=== PATIENT | female | born 1945 | race Caucasian/White ===

== ENCOUNTER 2017-06-08 06:29 | Inpatient (IN) | payer OTHER ==
[2017-05-13 11:48] VITALS: Ht 162.6 cm; Wt 78.6 kg
--- NOTE | 2017-05-13 12:27 | PAT Medication Instructions ---
Service Date May 13, 2017. Current Home Medication List Aspirin (Aspirin Ec), 81 MG PO QAM Calcium/Vitamin D (Os-Priyank 500 Plus D), 1,000 MG PO QAM Cholecalciferol (Vitamin D3), 1 CAP PO HS Citalopram Hydrobromide (Celexa), 20 MG PO QAM Fluticasone Prop/Salmeterol (Advair Diskus 250/50 60 Dose), 1 PUFF INH BID Furosemide (Lasix), 40 MG PO QAM Ibuprofen (Motrin), 600 MG PO TID PRN for PRN Losartan Potassium (Cozaar), 50 MG PO QAM Metoprolol Tartrate (Lopressor), 25 MG PO QPM Metoprolol Tartrate (Lopressor) (Lopressor), 12.5 MG PO QAM Multivitamin (Multivitamin), 1 TAB PO QAM Mupirocin 2% (Bactroban 2%), 1 APPLN EXT UD PRN for PRN Nitroglycerin (Nitrostat), 0.4 MG UT PRN Omeprazole (Prilosec), 40 MG PO QAM Rosuvastatin Calcium (Crestor), 5 MG PO HS Medication Instructions For Your Scheduled Surgery -Continue as directed: Nitroglycerin (Nitrostat), 0.4 MG UT PRN - Check with your surgeon for instructions for: Ibuprofen (Motrin), 600 MG PO TID PRN for PRN - Hold the following medications 24 hours prior to surgery: Mupirocin 2% (Bactroban 2%), 1 APPLN EXT UD PRN for PRN - Hold the following medications the morning of surgery: Multivitamin (Multivitamin), 1 TAB PO QAM Losartan Potassium (Cozaar), 50 MG PO QAM Furosemide (Lasix), 40 MG PO QAM Calcium/Vitamin D (Os-Priyank 500 Plus D), 1,000 MG PO QAM - Take the following medications the morning of surgery with a sip of water: Aspirin (Aspirin Ec), 81 MG PO QAM Omeprazole (Prilosec), 40 MG PO QAM Metoprolol Tartrate (Lopressor) (Lopressor), 12.5 MG PO QAM Fluticasone Prop/Salmeterol (Advair Diskus 250/50 60 Dose), 1 PUFF INH BID Citalopram Hydrobromide (Celexa), 20 MG PO QAM - Take the following medications as scheduled the night before surgery: Rosuvastatin Calcium (Crestor), 5 MG PO HS Metoprolol Tartrate (Lopressor), 25 MG PO QPM Fluticasone Prop/Salmeterol (Advair Diskus 250/50 60 Dose), 1 PUFF INH BID Cholecalciferol (Vitamin D3), 1 CAP PO HS If you have any questions please call us at [phone] or [phone] or [phone]
[2017-05-13 13:36] LABS: BASO % 0.3 %; BASO ABS # 0.03 K/uL (0-0.2); COMPLETE YES; EOS % 3.5 %; HEMATOCRIT 40.4 % (37-47); IG% 0.1 %; LYMPH % 35.5 %; LYMPH ABS # 3.31 K/uL (1.2-3.4); MEAN CORPUSCULAR HEMOGLOBIN 28.9 pg (25-34); MEAN CORPUSCULAR HGB CONC 32.4 g/dl (32-36); MEAN PLATELET VOLUME 10.8 fL (7.4-10.4); MONO % 7.8 %; NEUT % 52.8 %; PLATELET COUNT 303 K/uL (130-400); RED BLOOD COUNT 4.54 M/uL (4.2-5.4); WHITE BLOOD COUNT 9.33 K/uL (4.8-10.8)
[2017-05-13 13:50] LABS: PARTIAL THROMBOPLASTIN RATIO 1.1; PROTHROMBIN TIME (PATIENT) 10.8 SECONDS (9.0-12.0)
[2017-05-13 14:01] LABS: BUN/CREATININE RATIO 30.1 (10-20); CALCIUM 9.6 mg/dl (8.5-10.1); CREATININE 0.93 mg/dl (0.60-1.20); POTASSIUM 4.2 mmol/L (3.5-5.1)
--- NOTE | 2017-05-13 14:01 | DIAGNOSTIC IMAGING REPORT ---
TWO VIEW CHEST CLINICAL HISTORY: Preoperative examination. FINDINGS: PA and lateral chest radiographs are obtained. No prior studies are available for comparison at the time of dictation. The patient is status post midline sternotomy. The heart is mildly enlarged and there is atherosclerotic calcification of the thoracic aorta. The pulmonary vasculature is noncongested. The lungs and pleural spaces are clear. Apical scarring is observed. There is no pneumothorax. The skeletal structures are osteopenic. The bony thorax appears intact. S-shaped thoracal lumbar scoliosis is observed. IMPRESSION: Mild cardiac enlargement with no active disease in the chest. Electronically signed by: Mohsen Barahona M.D. 05/13/2017 2:00 PM Dictated Date/Time: 05/13/2017 1:59 PM
[~2017-06-08] VITALS: Ht 162.6 cm; Wt 78.6 kg
[2017-06-08] VITALS (9 sets, daily range): BP systolic 104–151; BP diastolic 64–78; PULSE 67–81; TEMP 36.4–37; O2SAT 91–96
[~2017-06-08 06:29] MED LIST: ADVIN25/60 INH; ASPI81TA28 PO; BCTCR/30 EXT; CALC500C70 PO; CEFAZOLIN 1000MG IV PUSH 5 ML IV SCH; CHOL2000 PO; CITA20TA9 PO; CRS/10 PO; FRS/40 PO; IBUP600T44 PO; LACTATED RINGER'S 1000ML 1,000 ML IV SCH; LOSA50TA6 PO; LPR25 PO; METO25TA56 PO; MULT-506 PO; NTRGSL/4 UT; PRLSR20 PO
[2017-06-08] MEDS ORDERED: PHENYLEPHRINE 100MCG/ML 5ML SYR IV PRN (08:00)
[2017-06-08] MEDS ORDERED: ATROPINE SULFATE 0.1 MG/ML 5ML SYR IV PRN (08:00)
[2017-06-08] MEDS ORDERED: HYDROmorphone INJ 1 MG/ML SYR IV PRN (08:00)
[2017-06-08] MEDS ORDERED: ACETAMINOPHEN 1000 MG/100 ML IV IV ONE (08:00)
[2017-06-08] MEDS ORDERED: FENTANYL CITRATE INJ 50 MCG/1 ML 2 ML VIAL IV PRN (08:00)
[2017-06-08] MEDS ORDERED: ONDANSETRON INJ 2 MG/ML 2 ML VIAL IV PRN ×2 (08:00→11:45)
[2017-06-08] MEDS ORDERED: EpHEDrine SULFATE INJ 50 MG/ML AMP IV PRN (08:00)
[2017-06-08] MEDS ORDERED: FENTANYL CITRATE INJ 50 MCG/1 ML 2 ML VIAL ONE ×4 (08:13→11:20)
[2017-06-08] MEDS ORDERED: MIDAZOLAM HCL 1 MG/ML 2ML VIAL ONE (08:13)
--- NOTE | 2017-06-08 08:40 | History & Physical Bridge Note ---
H&P Re-Evaluation Bridge Note: I have examined the patient, reviewed the History & Physical and in the interval since the performance of the History & Physical I have noted the following changes of clinical significance: No changes noted
--- NOTE | 2017-06-08 08:42 | History and Physical ---
History & Physical Date Jun 08, 2017. Chief Complaint Back and leg pain History of Present Illness The patient is a 72 year old female with complaints of back and leg pain Additional History Hepatic Disease: No Endocrine Disorder: No Kidney Disease: No Hypertension: Yes Heart Disease: No Bleeding Tendencies: No Infectious Diseases: No Allergies Coded Allergies: Oxycodone (Verified Allergy, Unknown, SEVERE NAUSEA AND VOMITNG, 06/08/17) Home Medications Scheduled Aspirin (Aspirin Ec), 81 MG PO QAM Calcium/Vitamin D (Os-Priyank 500 Plus D), 1,000 MG PO QAM Cholecalciferol (Vitamin D3), 1 CAP PO HS Citalopram Hydrobromide (Celexa), 20 MG PO QPM Fluticasone Prop/Salmeterol (Advair Diskus 250/50 60 Dose), 1 PUFF INH BID Furosemide (Lasix), 40 MG PO QAM Losartan Potassium (Cozaar), 50 MG PO QAM Metoprolol Tartrate (Lopressor), 25 MG PO QPM Metoprolol Tartrate (Lopressor) (Lopressor), 12.5 MG PO QAM Multivitamin (Multivitamin), 1 TAB PO QAM Nitroglycerin (Nitrostat), 0.4 MG UT PRN Omeprazole (Prilosec), 40 MG PO QAM Rosuvastatin Calcium (Crestor), 5 MG PO HS Scheduled PRN Ibuprofen (Motrin), 600 MG PO TID PRN for PRN Mupirocin 2% (Bactroban 2%), 1 APPLN EXT UD PRN for PRN Physical Examination Skin: warm/dry, no rash Eyes: normal inspection, EOMI, sclerae normal ENT: normal ENT inspection, pharynx normal Head: normocephalic, atraumatic Neck: supple, no adenopathy, trachea midline Respiratory/Chest: lungs clear, normal breath sounds, no respiratory distress Cardiovascular: regular rate, rhythm, no edema, no murmur Abdomen / GI: normal bowel sounds, non tender Back: normal inspection Extremities: normal inspection, normal range of motion Neurologic/Psych: no motor/sensory deficits, alert, normal reflexes, oriented x 3 Diagnosis Lumbar spinal stenosis Plan of Treatment L3 to L5 decompression and fusion
[2017-06-08] MEDS ORDERED: BACITRACIN 50000 UNIT VIAL ONE (08:58)
[2017-06-08] MEDS ORDERED: BUPIVACAINE/EPINEPHRINE 0.5% MPF 1:200,000 30 ML VIAL ONE (08:58)
[2017-06-08] MEDS ORDERED: HYDROmorphone INJ 2 MG/ML SYR/VIAL ONE ×2 (09:44→11:35)
[2017-06-08] MEDS ORDERED: ONDANSETRON INJ 2 MG/ML 2 ML VIAL ONE ×2 (10:22→12:50)
[2017-06-08] MEDS ORDERED: LIDOCAINE HCL 2% 2 ML VIAL (20MG/ML) ONE (10:22)
[2017-06-08] MEDS ORDERED: ROCURONIUM BROMIDE 10 MG/ML 5 ML VIAL IV ONE (10:22)
[2017-06-08] MEDS ORDERED: DEXAMETHASONE SOD INJ 4 MG/ML VIAL ONE (10:22)
[2017-06-08] MEDS ORDERED: PROPOFOL IV EMULSION 10 MG/ML 20 ML VIAL IV ONE (10:22)
[2017-06-08] MEDS ORDERED: FLOSEAL HEMOSTATIC MATRIX 10ML TOP ONE (11:26)
[2017-06-08] MEDS ORDERED: METOCLOPRAMIDE HCL INJ 5 MG/ML 2 ML VIAL IV PRN (11:45)
[2017-06-08] MEDS ORDERED: NALOXONE HCL 0.4 MG/1 ML VIAL/CARP IV PRN ×2 (11:45)
[2017-06-08] MEDS ORDERED: HYDROmorphone HCL 0.5MG/ML 50 ML CASSETTE IV PRN (11:45)
[2017-06-08] MEDS ORDERED: MAGNESIUM HYDROXIDE SUSP 30 ML UDC PO PRN (11:45)
[2017-06-08] MEDS ORDERED: ACETAMINOPHEN IV 100 ML IV PRN (11:45)
[2017-06-08] MEDS ORDERED: FAMOTIDINE 20 MG TAB PO PRN (11:45)
[2017-06-08] MEDS ORDERED: ACETAMINOPHEN 500 MG TAB PO PRN (11:45)
[2017-06-08] MEDS ORDERED: NITROGLYCERIN 0.4 MG SL PER TAB CHARGE UT SCH (11:45)
[2017-06-08] MEDS ORDERED: hydrOXYzine HCL 25 MG TAB PO PRN (11:45)
[2017-06-08] MEDS ORDERED: DO NOT ADMINISTER FLU VACCINE PRN ×3 (11:45)
[2017-06-08] MEDS ORDERED: BISACODYL 10 MG SUPP PR PRN (11:45)
[2017-06-08] MEDS ORDERED: DO NOT ADMINISTER PNEUMOCOCCAL VACCINE PRN ×2 (11:45)
[2017-06-08] MEDS ORDERED: PROMETHAZINE HCL INJ 12.5 MG in SODIUM CHLORIDE 0.9% 50ML 50 ML IV PRN (11:45)
[2017-06-08] MEDS ORDERED: LORAZEPAM INJ 0.5 MG in SYRINGE 0.75 ML IV PRN (11:45)
[2017-06-08] MEDS ORDERED: LORAZEPAM 0.5 MG TAB PO PRN (11:45)
[2017-06-08] MEDS ORDERED: ALUMINUM/MAGNESIUM SUSP 30 ML UDC PO PRN (11:45)
[2017-06-08] MEDS ORDERED: SOD PHOSPHATE/SOD BIPHOSPHATE ENEMA 132 ML BTL PR PRN (11:45)
[2017-06-08] MEDS ORDERED: SODIUM CHLORIDE 0.9% 1000ML 1,000 ML IV SCH (11:45)
--- NOTE | 2017-06-08 11:52 | [facility] Operative Report ---
Operative Report Operative Date Jun 08, 2017. Pre-Operative Diagnosis Lumbar Spinal Stenosis Post-Operative Diagnosis Same Procedure(s) Performed #1 lumbar decompression medial facetectomies foraminotomies L3 4 L4 5 L5-S1. #2 posterior spinal fusion L4 5 L5-S1. #3 placement posterior segmental instrumentation L3 4 L4 5. #4 interbody fusion L4 5. #5 placement peek cage 11 x 22 mm at L4 5. #6 placement of locally harvested morcellized autograft in the posterior lateral gutters. #7 placement infuse collagen sponge by mask graft in the posterior lateral gutter and ostial amp in the interbody space. Surgeon Dr. Moe Walker Electrical Engineering Director Surgeon(s) None Estimated Blood Loss 400 cc Findings Severe spinal stenosis Specimens none per surgeon Description of Procedure Patient was met with preoperatively case discussed all questions addressed. After informed consent was obtained patient was taken operative suite underwent intubation placed in a prone position the Jc table on top Mika frame. All bony prominences well-padded eyes inspected to ensure there is no external pressure placed upon them. This point the lumbar spine was prepped and draped in the normal sterile fashion. Sharp dissection with the assistance of Bovie cautery was performed onto an exposing the lamina and transverse processes of L3 L4-L5 bilaterally. From a caudal cephalad fashion complete laminectomy of L4 and L3 was performed as well as partial laminectomy of L5 to address significant lateral recess disease and stenosis of the L5 nerve root on the right. After complete decompression pedicle screws are placed in L3 L4-L5 bilaterally with assistance of fluoroscopy the purposes vera placed. Through a transverse foraminal approach on the right a complete discectomy of L4 5 was performed and plate created to subcortical bleeding bone and a 11 x 22 mm peek cage filled with ostial amp bone graft tapped in position. The rods were then locked and final position bilaterally. Transverse processes of L3 L4-L5 and sacral alar burred to subcortical bleeding bone. Infuse collagen sponge mask graft locally harvested morcellized autograft was placed in the posterior lateral gutters. 15 round JOSE drain inserted. Incision closed with 1 Vicryl in the fascia 2-0 Vicryl subcutaneously for Monocryl for final skin closure Steri- Strips sterile dressings placed. Patient we can take PACU stable condition. I attest to the content of the Intraoperative Record and any orders documented therein. Any exceptions are noted below.
[2017-06-08] MEDS ORDERED: HYDROmorphone HCL 0.5MG/ML 50 ML CASSETTE ONE (12:00)
--- NOTE | 2017-06-08 12:33 | DIAGNOSTIC IMAGING REPORT ---
LUMBAR SPINE 2 OR 3 VIEW HISTORY: 72 years-old Female L3-5 DECOMPRESSION/FUSION/INTERBODY status post decompression with interbody fusion at L3-L5 COMPARISON: Chest radiographs 05/13/2017 TECHNIQUE: 2 spot fluoroscopic images of the lumbar spine were obtained utilizing 15.7 seconds fluoroscopy time FINDINGS: Posterior interbody vera and screw fusion hardware noted at the L3-L5 levels. Discectomy changes noted at L4-L5. Alignment appears satisfactory. The hardware appears intact. IMPRESSION: Spinal fusion with fluoroscopic assistance as above. Please see operative report for further details. The above report was generated using voice recognition software. It may contain grammatical, syntax or spelling errors. Electronically signed by: Christian San M.D. 06/08/2017 12:32 PM Dictated Date/Time: 06/08/2017 12:31 PM
[2017-06-08] MEDS ORDERED: NEOSTIGMINE METHYLSULFATE 1 MG/ML 10ML VIAL ONE (12:50)
[2017-06-08] MEDS ORDERED: GLYCOPYRROLATE INJ 0.2 MG/ML VIAL ONE (12:50)
[2017-06-08] MEDS ORDERED: KETOROLAC TROMETHAMINE 30 MG/ML VIAL ONE (12:50)
--- NOTE | 2017-06-08 12:58 | Anesthesiology Progress Note ---
Anesthesia Post Op Note Date & Time Jun 08, 2017 at 12:57 Vital Signs Pain Intensity: 0 Vital Signs Past 12 Hours Date Time Temp Pulse Resp B/P (MAP) Pulse Ox O2 Delivery O2 Flow Rate FiO2 06/08/17 12:45 36.5 69 16 152/56 96 Nasal Cannula 2 06/08/17 12:35 74 18 155/52 98 Oxymask 5 06/08/17 12:25 76 18 164/52 98 Oxymask 5 06/08/17 12:15 77 18 162/55 100 Oxymask 10 06/08/17 12:05 82 18 186/64 98 Oxymask 10 06/08/17 11:57 36.5 83 16 175/70 94 Oxymask 10 06/08/17 07:48 36.9 67 18 151/72 96 Room Air Notes Mental Status: alert / awake / arousable, participated in evaluation Pt Amnestic to Procedure: Yes Nausea / Vomiting: adequately controlled Pain: adequately controlled Airway Patency, RR, SpO2: stable & adequate BP & HR: stable & adequate Hydration State: stable & adequate Anesthetic Complications: no major complications apparent Doing well, no complaints.VSS
[2017-06-08] MEDS: SODIUM CHLORIDE 0.9% 1000ML 1,000 ML IV SCH ×2 (16:03→22:54)
[2017-06-08] MEDS ORDERED: NURSING VERBAL MED ORDER ONE (16:15)
[2017-06-08] MEDS: CEFAZOLIN IV 1,000 MG in SYRINGE 0 ML IV SCH (17:54)
[2017-06-08] MEDS: FLUTICASONE/SALMETEROL 250/50 (ADVAIR) 14 PUFF/1 INHALER INH SCH (21:03)
[2017-06-08] MEDS: METOPROLOL TARTRATE 25 MG TAB PO SCH (21:04)
[2017-06-08] MEDS: CITALOPRAM 20 MG TAB PO SCH (21:04)
[2017-06-08] MEDS: DOCUSATE SODIUM/SENNA 50/8.6MG TAB PO SCH (21:04)
[2017-06-08] MEDS: ROSUVASTATIN CALCIUM 10 MG TAB PO SCH (21:04)
[2017-06-09] VITALS (8 sets, daily range): BP systolic 114–177; BP diastolic 63–78; PULSE 67–77; TEMP 36.5–37; O2SAT 91–96
[2017-06-09] MEDS: CEFAZOLIN IV 1,000 MG in SYRINGE 0 ML IV SCH (02:24)
[2017-06-09] MEDS: SODIUM CHLORIDE 0.9% 1000ML 1,000 ML IV SCH (05:10)
[2017-06-09] MEDS ORDERED: NURSING VERBAL MED ORDER ONE (06:00)
[2017-06-09] MEDS ORDERED: DC PCA SCH (06:00)
[2017-06-09] MEDS ORDERED: HYDROmorphone INJ 0.5 MG/0.5 ML SYR IV PRN (06:00)
[2017-06-09 06:04] LABS: BASO % 0.1 %; BASO ABS # 0.01 K/uL (0-0.2); COMPLETE YES; IG% 0.3 %; LYMPH % 8.4 %; LYMPH ABS # 1.43 K/uL (1.2-3.4); MEAN CELL VOLUME 90.4 fL (80-100); MEAN CORPUSCULAR HEMOGLOBIN 28.6 pg (25-34); MEAN CORPUSCULAR HGB CONC 31.6 g/dl (32-36); MEAN PLATELET VOLUME 10.8 fL (7.4-10.4); NEUT % 84.2 %; PLATELET COUNT 272 K/uL (130-400); RED BLOOD COUNT 3.43 M/uL (4.2-5.4); WHITE BLOOD COUNT 16.94 K/uL (4.8-10.8)
[2017-06-09 06:32] LABS: BUN/CREATININE RATIO 20.6 (10-20); CALCIUM 8.1 mg/dl (8.5-10.1); CREATININE 1.15 mg/dl (0.60-1.20); POTASSIUM 4.6 mmol/L (3.5-5.1)
[2017-06-09] MEDS ORDERED: HYDR-5688 PO (08:39)
--- NOTE | 2017-06-09 08:40 | Discharge Instructions ---
Discharge Instructions Date of Service Jun 09, 2017. Admission Reason for Admission: Lumbar Spinal Stenosis Discharge Discharge Diagnosis / Problem: lumbar stenosis Discharge Goals Goal(s): Improve function Activity Recommendations Activity Limitations: per Instructions/Follow-up section . Instructions / Follow-Up Instructions / Follow-Up ACTIVITY RECOMMENDATIONS: SELF CARE INSTRUCTIONS AFTER THORACIC/LUMBAR FUSIONS 1. You may walk to your tolerance. It is good exercise for your legs and back. Expect some back and intermittent leg aches and pains. 2. You may perform "counter-top" level activities (make a sandwich, bryon with a project, etc.). 3. No bending or lifting of more than 10 pounds or back twisting of any nature (roll like a log when turning in bed). 4. You may ride in a car for 20-30 minutes at a time. No driving until after your first visit with your doctor. 5. Frequent changes of position and restricting sitting to 30 minutes at a time will help limit the amount of back spasms and stiffness you may experience. 6. You may discontinue the use of ambulatory aids (cane, crutches, etc.) once your strength and confidence allow. 7. You may piping blocker the shower and let water strike your incision when you arrive home at least once daily. Do not take a tub bath, sit in a hot tub or go into a swimming pool until after your first recheck in the office. SPECIAL CARE INSTRUCTIONS: VERY IMPORTANT TO READ AND REVIEW A. Your surgical incision has been closed with a cosmetic suture under the skin that will dissolve in about 6 weeks. In 14 days, you can use a pair of clean scissors and cut the suture that is left outside of the skin at the ends of your incision. 1. The small skin tapes can be removed 7 days after surgery if they have not fallen off by that point. 2. You may keep the wound open to air as much as possible to promote healing after post-op day number 5 unless told otherwise by your doctor. 3. If you think the wound looks like it is becoming infected (redness or worsening drainage) and/or you are experiencing fever, chill or worsening back pain and muscle spasms, contact the office so that we may evaluate you as soon as possible. B. Complications are uncommon, but please contact us if you have any signs or symptoms of: 1. wound infection (fever higher than 102.5 degrees F, redness, separation of wound, drainage, or increasing pain from the incision) 2. blood clots in legs (pain, swelling, redness and warmth in legs) 3. urinary tract infection (fever higher than 102.5 degrees F, burning upon urination or increased frequency of urination) 4. nerve problems (inability to walk on your toes or heels, numbness, loss of bowel or bladder control) 5. any other symptoms that concern you C. Please call the office at if you have any concerns or questions about your operation or recovery. D. No smoking! Smoking drastically decreases the chance of a solid fusion. E. Do not take any anti-inflammatory medications (Indocin, Advil, Motrin, Aspirin, Naprosyn, etc.) as these may inhibit the chance of a solid fusion. Tylenol is okay to take for pain. MANAGING PAIN AFTER SPINAL SURGERY 1. Narcotic medication is intended for short-term use and will be provided for surgical pain. Surgical pain usually lasts for a period of 4-6 weeks. Narcotic medication includes Percocet, Vicodin, Darvocet, Tylenol #3 or Lortab. 2. Longer-term pain is more appropriately treated with non-narcotic medication such as Tylenol ES. 3. Muscle spasm is not appropriately treated with narcotics. Muscle relaxers such as Soma, Flexeril or Skelaxin can be used along with Tylenol ES. 4. Remember that we all live with some "aches and pains". This is not unusual or uncommon after an injury or as we get older. a. Back pain is expected and may include muscle spasms for 4 to 6 weeks after surgery. The pain should gradually improve. If the pain worsens for no apparent reason, please contact the office. b. Intermittent leg pain may also be experienced and should not be concerned about unless it worsens for no apparent reason. If so, please contact the office. 5. We will provide appropriate medication within the normal guidelines of their prescribed use. We will also be very cautious and aware of potential abuse and extended duration of patients' medication needs. a. Pain medications are for your comfort and to assist with sleep and rest so that the tissue can heal. They are not provided in order to return to normal activity and should not be used through the day. To do so or worsening pain at night can result from ongoing tissue damage and development of tolerance to the prescribed medicine. 6. Please allow 2-3 days to process refills. Prescriptions will not be mailed but must be picked up at the office. FOLLOW UP VISIT: Keep your scheduled follow-up appointment. Any questions, please call the office at . Current Hospital Diet Patient's current hospital diet: Regular Diet Discharge Diet Recommended Diet: Regular Diet Procedures Procedures Performed: #1 lumbar decompression medial facetectomies foraminotomies L3 4 L4 5 L5-S1. #2 posterior spinal fusion L4 5 L5-S1. #3 placement posterior segmental instrumentation L3 4 L4 5. #4 interbody fusion L4 5. #5 placement peek cage 11 x 22 mm at L4 5. #6 placement of locally harvested morcellized autograft in the posterior lateral gutters. #7 placement infuse collagen sponge by mask graft in the posterior lateral gutter and ostial amp in the interbody space. Pending Studies Studies pending at discharge: no Medical Emergencies . Who to Call and When: Medical Emergencies: If at any time you feel your situation is an emergency, please call 911 immediately. . Non-Emergent Contact Non-Emergency issues call your: Primary Care Provider . "Provider Documentation" section prepared by Moe Walker. . VTE Core Measure Inpt VTE Proph given/why not?: Nba Colmenares, SCD's
--- NOTE | 2017-06-09 08:44 | Clinical Documentation Query ---
CLINICAL DOCUMENTATION QUERY Dr. OSMAN, In your clinical opinion is this patient being managed for: ( x ) Acute blood loss anemia ( ) Not Agree ( ) Other explanation of clinical findings (Please Explain) ( ) Unable to determine (Please Define) ( ) Need to Discuss The medical record reflects the following clinical findings, treatment, and risk factors. Clinical Indicators: Baseline Hgb 13.1, Hct 40.4, dropping to 9.8/31. EBL 400 cc Treatment: monitor CBC Risk Factors: surgery Please clarify and document your clinical opinion in the progress notes and discharge summary. Terms such as "probable", "suspected", "likely", "questionable", "possible", or "still to be ruled out" are acceptable. IF IN AGREEMENT, YOU MUST DOCUMENT ABOVE DIAGNOSTIC STATEMENT IN DAILY PROGRESS NOTES AND DISCHARGE SUMMARY. This document is not part of the patient's record. Thank You, Deborah Andrews RN [phone]
--- NOTE | 2017-06-09 09:09 | Progress Note ---
Progress Note Date of Service Jun 09, 2017. Progress Note Patient is status post lumbar decompression fusion. Back pain is controlled. Leg pain markedly improved. On exam vital signs are stable. She is in a chair at bedside. Strength is intact. Assessment status post lumbar decompression fusion replant this time we'll initiate physical therapy today advance her bowel regiment anticipate discharge home Wednesday.
[2017-06-09] MEDS: ASPIRIN 81 MG ECTAB PO SCH (09:16)
[2017-06-09] MEDS: FUROSEMIDE 40 MG TAB PO SCH (09:16)
[2017-06-09] MEDS: FLUTICASONE/SALMETEROL 250/50 (ADVAIR) 14 PUFF/1 INHALER INH SCH ×2 (09:16→20:02)
[2017-06-09] MEDS: PANTOprazole SOD 40 MG TAB PO SCH (09:16)
[2017-06-09] MEDS: LOSARTAN POTASSIUM 50 MG TAB PO SCH (09:17)
[2017-06-09] MEDS: METOPROLOL TARTRATE 25 MG TAB PO SCH ×2 (09:18→20:05)
[2017-06-09] MEDS: HYDROCODONE/ACETAMOPHEN 5/325MG TAB PO PRN ×3 (11:00→20:49)
--- NOTE | 2017-06-09 12:57 | Anesthesiology Progress Note ---
Anesthesia Post Op Note Date & Time Jun 09, 2017 at 12:56 Vital Signs Vital Signs Past 12 Hours Date Time Temp Pulse Resp B/P (MAP) Pulse Ox O2 Delivery O2 Flow Rate FiO2 06/09/17 12:00 36.8 74 18 177/78 (111) 96 Room Air 06/09/17 08:53 94 Room Air 06/09/17 08:33 36.5 72 20 144/70 (94) 94 Room Air 06/09/17 07:25 Room Air 06/09/17 03:31 37.0 73 14 119/67 (84) 91 Room Air Notes Mental Status: alert / awake / arousable, participated in evaluation Pt Amnestic to Procedure: Yes Nausea / Vomiting: adequately controlled Pain: adequately controlled Airway Patency, RR, SpO2: stable & adequate BP & HR: stable & adequate Hydration State: stable & adequate Anesthetic Complications: no major complications apparent
[2017-06-09] MEDS: DOCUSATE SODIUM/SENNA 50/8.6MG TAB PO SCH (20:02)
[2017-06-09] MEDS: CITALOPRAM 20 MG TAB PO SCH (20:03)
[2017-06-09] MEDS: ROSUVASTATIN CALCIUM 10 MG TAB PO SCH (20:03)
[2017-06-10] MEDS: POLYETHYLENE (MIRALAX) 17 GM PACK PO SCH ×4 (06:00→23:20)
[2017-06-10 07:34] VITALS: BP 145/73; PULSE 72; TEMP 36.8; O2SAT 93
--- NOTE | 2017-06-10 09:03 | Progress Note ---
Progress Note Date of Service Jun 10, 2017. Progress Note Back pain is controlled. Again leg symptoms improved. On exam vital signs are stable. She sitting in the chair at the bedside. His good strength testing. Assessment status post lumbar decompression fusion per plan this time we will maintain physical therapy today and plan for discharge home tomorrow.
[2017-06-10] MEDS: HYDROCODONE/ACETAMOPHEN 5/325MG TAB PO PRN ×2 (10:21→18:14)
[2017-06-10] MEDS: FUROSEMIDE 40 MG TAB PO SCH (10:21)
[2017-06-10] MEDS: ASPIRIN 81 MG ECTAB PO SCH (10:22)
[2017-06-10] MEDS: PANTOprazole SOD 40 MG TAB PO SCH (10:22)
[2017-06-10] MEDS: LOSARTAN POTASSIUM 50 MG TAB PO SCH (10:22)
[2017-06-10] MEDS: FLUTICASONE/SALMETEROL 250/50 (ADVAIR) 14 PUFF/1 INHALER INH SCH ×2 (10:22→20:18)
[2017-06-10] MEDS: METOPROLOL TARTRATE 25 MG TAB PO SCH ×2 (10:24→20:19)
[2017-06-10 14:57] VITALS: BP 105/62; PULSE 70; TEMP 36.8; O2SAT 94
[2017-06-10 20:15] VITALS: BP 144/75; PULSE 83
[2017-06-10] MEDS: ROSUVASTATIN CALCIUM 10 MG TAB PO SCH (20:18)
[2017-06-10] MEDS: CITALOPRAM 20 MG TAB PO SCH (20:18)
[2017-06-10] MEDS: DOCUSATE SODIUM/SENNA 50/8.6MG TAB PO SCH (20:19)
[2017-06-10 22:50] VITALS: BP 125/72; PULSE 78; TEMP 36.7; O2SAT 97
[2017-06-11] MEDS: POLYETHYLENE (MIRALAX) 17 GM PACK PO SCH (06:00)
[2017-06-11] MEDS: HYDROCODONE/ACETAMOPHEN 5/325MG TAB PO PRN ×2 (07:27→11:43)
[2017-06-11 07:52] VITALS: BP 124/64; PULSE 73; TEMP 36.8; O2SAT 94
[2017-06-11 08:23] VITALS: O2SAT 94
[2017-06-11] MEDS: FUROSEMIDE 40 MG TAB PO SCH (08:51)
[2017-06-11] MEDS: FLUTICASONE/SALMETEROL 250/50 (ADVAIR) 14 PUFF/1 INHALER INH SCH (08:51)
[2017-06-11] MEDS: PANTOprazole SOD 40 MG TAB PO SCH (08:52)
[2017-06-11] MEDS: LOSARTAN POTASSIUM 50 MG TAB PO SCH (08:52)
[2017-06-11] MEDS: METOPROLOL TARTRATE 25 MG TAB PO SCH (08:52)
[2017-06-11] MEDS: ASPIRIN 81 MG ECTAB PO SCH (08:52)
[2017-06-11] MEDS ORDERED: NURSING VERBAL MED ORDER ONE (09:30)
--- NOTE | 2017-06-11 10:00 | Discharge Summary ---
Orthopedic Discharge Summary Admission Date/Reason Jun 08, 2017 at 09:05 Lumbar Spinal Stenosis. Discharge Date/Disposition Jun 11, 2017 Home Diagnosis Principal Diagnosis: Lumbar spinal stenosis Admission Physical Exam As per Admitting History & Physical. Hospital Course Patient 1 lumbar decompression fusion tolerated as well as taken to the orthopedic floor postop we. Postoperative the she tolerated physical therapy well progressed appropriately. JOSE drain decreased properly subsequently discharge home postop day 3. Discharge orders and instructions found on the chart for further review. Discharge Instructions Please refer to the electronic Patient Visit Report (Discharge Instructions) for additional information.
[2017-06-11 11:10] VITALS: BP 124/64; PULSE 73; TEMP 36.8; O2SAT 94
== END 2017-06-11 12:04 | disposition home or self-care (01) | DRG 455 ==
LOC: C.ACU 06:29 → C.3E 09:05 → ENRESERV 12:33
PROVIDERS: ADMIT Orthopaedic Surgery Orthopaedic Surgery of the Spine; ATTEND Orthopaedic Surgery Orthopaedic Surgery of the Spine
PROC: 0SG3071 Fusion of Lumbosacral Joint with Autologous Tissue Substitute, Posterior Approach, Posterior Column, Open Approach (ICD-10-PCS; principal; 2017-06-08 08:45)
PROC: 0SG00AJ Fusion of Lumbar Vertebral Joint with Interbody Fusion Device, Posterior Approach, Anterior Column, Open Approach (ICD-10-PCS; principal; 2017-06-08 08:45)
PROC: 01NB0ZZ Release Lumbar Nerve, Open Approach (ICD-10-PCS; principal; 2017-06-08 08:45)
PROC: 0SG0071 Fusion of Lumbar Vertebral Joint with Autologous Tissue Substitute, Posterior Approach, Posterior Column, Open Approach (ICD-10-PCS; principal; 2017-06-08 08:45)
PROC: 0ST20ZZ Resection of Lumbar Vertebral Disc, Open Approach (ICD-10-PCS; principal; 2017-06-08 08:45)
DX: M48.061 Spinal stenosis, lumbar region without neurogenic claudication (principal); I10 Essential (primary) hypertension; Z79.82 Long term (current) use of aspirin

== ENCOUNTER 2017-06-17 01:53 | Observation (INO) | payer OTHER ==
[~2017-06-17] VITALS: Ht 160 cm; Wt 83.5 kg
[~2017-06-17 01:53] MED LIST changes: -CEFAZOLIN 1000MG IV PUSH 5 ML IV SCH; +HYDR-5688 PO; -IBUP600T44 PO; -LACTATED RINGER'S 1000ML 1,000 ML IV SCH
[2017-06-17] MEDS ORDERED: HYDROmorphone INJ 0.5 MG/0.5 ML SYR IV STA ×2 (02:22→12:29)
--- NOTE | 2017-06-17 02:29 | EMERGENCY ROOM VISIT NOTE ---
History Report prepared by Vicki: Bong Pierre Under the Supervision of: Dr. Lily Ahmadi D.O. First contact with patient: 01:54 Chief Complaint: BACK INJURY Stated Complaint: BACKPAIN History of Present Illness The patient is a 72 year old female who presents to the Emergency Room with complaints of constant, severe, right sided back pain beginning yesterday morning. The patient states had back surgery performed on the of this month and was discharged from the hospital on the . She reports she was discharged on oxycodone for pain control. The patient notes she was becoming delusional and was not able to recognize family members. She states she stopped taking oxycodone and started taking Tylenol 30 hours ago. The patient reports when she was discharged, she had bilateral pain in her thighs, but she thought she would be able to handle it. She notes she was in the bathroom yesterday morning when she heard a popping noise in her back. The patient states she continued her day in pain until she had another episode right before bed. She reports this episode caused the pain to intensify and shoot from her back into her thighs. The patient notes since surgery she has not been able to rest or walk well. She states she was still experiencing significant discomfort while on oxycodone. The patient reports she has been experiencing swelling in her lower extremities since the surgery. She notes she has been on Lasix before, and it helped with her swelling. She denies lower leg pain, chest pain, and shortness of breath. Source of History: patient Onset: yesterday morning Position: back (right) Symptom Intensity: severe Timing: constant Associated Symptoms: No chest pain, No SOB Note: Associated symptoms: thigh pain, swelling to her lower extremities Denies: lower leg pain Review of Systems See HPI for pertinent positives & negatives. A total of 10 systems reviewed and were otherwise negative. Past Medical & Surgical Medical Problems: (1) Lumbar stenosis with neurogenic claudication Family History Patient reports no known family medical history. Social History Smoking Status: Unknown if Ever Smoked Marital Status: Occupation Status: retired Current/Historical Medications Scheduled Aspirin (Aspirin Ec), 81 MG PO QAM Calcium/Vitamin D (Os-Priyank 500 Plus D), 1,000 MG PO QAM Cholecalciferol (Vitamin D3), 1 CAP PO HS Citalopram Hydrobromide (Celexa), 20 MG PO QPM Fluticasone Prop/Salmeterol (Advair Diskus 250/50 60 Dose), 1 PUFF INH BID Furosemide (Lasix), 40 MG PO QAM Losartan Potassium (Cozaar), 50 MG PO QAM Metoprolol Tartrate (Lopressor), 25 MG PO QPM Metoprolol Tartrate (Lopressor) (Lopressor), 12.5 MG PO QAM Multivitamin (Multivitamin), 1 TAB PO QAM Nitroglycerin (Nitrostat), 0.4 MG UT PRN Omeprazole (Prilosec), 40 MG PO QAM Rosuvastatin Calcium (Crestor), 5 MG PO HS Scheduled PRN Hydrocodone/Acetaminophen 5MG/325MG ([place] 5MG/325MG), 1-2 TAB PO Q4H PRN for Moderate - severe pain Mupirocin 2% (Bactroban 2%), 1 APPLN EXT UD PRN for PRN Allergies Coded Allergies: Oxycodone (Verified Allergy, Unknown, SEVERE NAUSEA AND VOMITNG, 06/17/17) Physical Exam Vital Signs Date Time Temp Pulse Resp B/P (MAP) Pulse Ox O2 Delivery O2 Flow Rate FiO2 06/17/17 05:57 95 20 145/69 94 Room Air 06/17/17 05:09 71 06/17/17 03:43 69 22 149/67 94 Room Air 06/17/17 02:02 73 06/17/17 01:57 36.9 74 20 178/74 93 Room Air Physical Exam HEENT: Head - normocephalic and atraumatic. Pupils are equal, round, and reactive to light. Extraocular eye muscles are intact and sclera are anicteric. Ears - bilaterally patent canals with noninjected tympanic membranes and no evidence of hemotympanum. Nose - moist nasal mucosa without discharge. Mouth - moist buccal mucosa. Oropharynx is nonerythematous and there is no tonsillar exudate or edema noted. Neck: Supple; no JVD, nuchal rigidity, cervical lymphadenopathy. Heart: Regular rate and rhythm. There is a normal S1 and S2 with no murmurs, clicks, or gallops appreciated. Lungs: Clear to auscultation bilaterally with no wheezes, rales, or rhonchi. Abdomen: Soft, completely nontender, nondistended, with good bowel sounds. There are no palpable pulsatile masses or hepatosplenomegaly. There is no guarding, rigidity, or rebound noted. BACK: Surgical incision appears well healing. Moderate edema noted to the right paraspinous area of the lumbar spine. Multiple patches of psoriasis surround the incision. Reproducible pain in the right piriformis muscle Extremities: No evidence of cyanosis, clubbing, or edema. There are easily palpable peripheral pulses. Neuro:The patient is awake and alert, oriented to day, time, and place. Muscle strength is 5/5 in all 4 extremities. 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 Medical Decision & Procedures ER Provider Diagnostic Interpretation: CT results as stated below per my review and radiologist interpretation: CT L SPINE: No prior studies available for comparison. L3-L5 transpedicular screws and posterior fusion rods appear well seated. There is fluid and paraspinal soft tissue edema/stranding at the surgical site, suboptimally evaluated due to steak artifact from hardware, expected postoperatively. However, cannot exclude infection based on this study. Correlate clinically. No acute fractures. Chronic multilevel degenerative changes with scoliosis. Radiologist: Arsen Andrade MD Study ready at 0258 and initial results transmitted at 1344. Laboratory Results 06/17/17 02:25 Red Blood Count 3.54, Mean Corpuscular Volume 87.9, Mean Corpuscular Hemoglobin 28.8, Mean Corpuscular Hemoglobin Concent 32.8, Mean Platelet Volume 9.5, Neutrophils (%) (Auto) 76.6, Lymphocytes (%) (Auto) 14.7, Monocytes (%) (Auto) 7.7, Eosinophils (%) (Auto) 0.6, Basophils (%) (Auto) 0.1, Neutrophils # (Auto) 8.07, Lymphocytes # (Auto) 1.55, Monocytes # (Auto) 0.81, Eosinophils # (Auto) 0.06, Basophils # (Auto) 0.01 06/17/17 02:25 Test 06/17/17 02:25 White Blood Count 10.53 K/uL (4.8-10.8) Red Blood Count 3.54 M/uL (4.2-5.4) Hemoglobin 10.2 g/dL (12.0-16.0) Hematocrit 31.1 % (37-47) Mean Corpuscular Volume 87.9 fL (80-100) Mean Corpuscular Hemoglobin 28.8 pg (25-34) Mean Corpuscular Hemoglobin Concent 32.8 g/dl (32-36) Platelet Count 416 K/uL (130-400) Mean Platelet Volume 9.5 fL (7.4-10.4) Neutrophils (%) (Auto) 76.6 % Lymphocytes (%) (Auto) 14.7 % Monocytes (%) (Auto) 7.7 % Eosinophils (%) (Auto) 0.6 % Basophils (%) (Auto) 0.1 % Neutrophils # (Auto) 8.07 K/uL (1.4-6.5) Lymphocytes # (Auto) 1.55 K/uL (1.2-3.4) Monocytes # (Auto) 0.81 K/uL (0.11-0.59) Eosinophils # (Auto) 0.06 K/uL (0-0.5) Basophils # (Auto) 0.01 K/uL (0-0.2) RDW Standard Deviation 43.0 fL (36.4-46.3) RDW Coefficient of Variation 13.4 % (11.5-14.5) Immature Granulocyte % (Auto) 0.3 % Immature Granulocyte # (Auto) 0.03 K/uL (0.00-0.02) Erythrocyte Sedimentation Rate 39 mm/hr (0-21) Anion Gap 6.0 mmol/L (3-11) Est Creatinine Clear Calc Drug Dose 52.0 ml/min Estimated GFR () 65.2 Estimated GFR (Non- 56.2 BUN/Creatinine Ratio 27.6 (10-20) Calcium Level 8.6 mg/dl (8.5-10.1) C-Reactive Protein 1.53 mg/dl (0-0.29) Chemistry Specimen Hemolysis Laboratory results per my review. Medications Administered Medications (Trade) Dose Ordered Sig/Jonh Route Start Time Stop Time Status Last Admin Dose Admin Hydromorphone HCl (Dilaudid Inj) 0.5 mg NOW STAT IV 06/17/17 02:22 06/17/17 02:23 DC 06/17/17 02:35 0.5 MG Sodium Chloride 500 ml @ 999 mls/hr Q31M STAT IV 06/17/17 03:21 06/17/17 03:51 DC 06/17/17 03:34 999 MLS/HR Procedure 0222: Ordered Dilaudid Inj 0.5mg IV 0321: Ordered Sodium Chloride 500 ml @ 999 mls/hr IV. ED Course 0201: Past medical records reviewed. The patient was evaluated in room A10 by the medical student under my supervision. A complete history and physical exam was performed. 0214: The patient was evaluated in room A10 by me. A complete history and physical examination were performed. Nursing notes and previous electronic medical records were reviewed. IV lock was established and labs were drawn as above. 0222: Ordered Dilaudid Inj 0.5mg IV 0321: Ordered Sodium Chloride 500 ml @ 999 mls/hr IV. 0323: I reevaluated the patient and discussed current exam findings. She is feeling much better and is not in pain. 0415: I reevaluated the patient and updated her of her CT results. She is comfortable and would like to go to [facility]. 0606: Case management informed me the patient would like to go to the [facility] in [place] because she lives closer to it. 0630: The patient was signed out to Dr. Donis Carty at the change of shift for further PT[facility] Medical Decision The patient is a 72 year old female who presents to the ED with back pain. Differential diagnosis includes post-surgical infection, displaced hardware, epidural abscess, sciatica, post-surgical pain. Lab results showed: no leukocytosis, hemoglobin of 10.2, SED rate of 39, C- reactive protein of 1.5, BUN of 27, normal glucose. This is a 72-year-old female patient who is 6 days post op from a lumbar fusion. The patient had been doing okay but over the past couple of days developed some increasing right-sided back pain. Yesterday, the patient felt a pop in her low back and seemed to have worsening pain in that area and down into the right lower extremity. Also, the patient had stopped taking her hydrocodone over the past 24-48 hours because she had some delusions. She was only taking Tylenol. I believe this may have contributed to the patient's increased back pain. She received IV Dilaudid here in the emergency department and is feeling much better. The patient refused any type of physical rehabilitation upon discharge from the hospital after surgery. She is now willing to go to [facility]. We are currently waiting for PT/OT evaluation and referral to [facility]. Medication Reconcilliation Current Medication List: was personally reviewed by me Blood Pressure Screening Patient's blood pressure: Elevated blood pressure Blood pressure disposition: Elevated BP felt to be situational Impression Primary Impression: Postoperative back pain Scribe Attestation The scribe's documentation has been prepared under my direction and personally reviewed by me in its entirety. I confirm that the note above accurately reflects all work, treatment, procedures, and medical decision making performed by me. Departure Information Dispostion Still a Patient Referrals No Doctor, Assigned (PCP) Patient Instructions My [facility]
[2017-06-17 02:40] LABS: BASO % 0.1 %; BASO ABS # 0.01 K/uL (0-0.2); EOS % 0.6 %; EOS ABS # 0.06 K/uL (0-0.5); HEMATOCRIT 31.1 % (37-47); HEMOGLOBIN 10.2 g/dL (12.0-16.0); IG# 0.03 K/uL (0.00-0.02); LYMPH % 14.7 %; LYMPH ABS # 1.55 K/uL (1.2-3.4); MEAN CELL VOLUME 87.9 fL (80-100); MEAN CORPUSCULAR HEMOGLOBIN 28.8 pg (25-34); MEAN CORPUSCULAR HGB CONC 32.8 g/dl (32-36); MEAN PLATELET VOLUME 9.5 fL (7.4-10.4); MONO % 7.7 %; MONO ABS # 0.81 K/uL (0.11-0.59); NEUT % 76.6 %; NEUT ABS # 8.07 K/uL (1.4-6.5); PLATELET COUNT 416 K/uL (130-400); RED CELL DISTRIBUTION WIDTH CV 13.4 % (11.5-14.5); WHITE BLOOD COUNT 10.53 K/uL (4.8-10.8)
[2017-06-17 03:16] LABS: CALCIUM 8.6 mg/dl (8.5-10.1); POTASSIUM 3.9 mmol/L (3.5-5.1)
[2017-06-17] MEDS ORDERED: SODIUM CHLORIDE 0.9% 500ML 500 ML IV STA (03:21)
--- NOTE | 2017-06-17 06:54 | DIAGNOSTIC IMAGING REPORT ---
LUMBAR SPINE WITHOUT HISTORY: 72 years-old Female eval post surgery abnormality status post recent L3-L5 laminectomy with posterior interbody vera and screw fusion and discectomy at L4-L5. Severe acute back pain. COMPARISON: Fluoroscopic images of the lumbar spine 06/08/2017 TECHNIQUE: Multiple axial CT images of the lumbar spine were obtained without contrast. A dose lowering technique was used consistent with the principals of ALARA. FINDINGS: 14 degrees levoscoliosis of the lumbar spine. Mild degenerative changes of the SI joints. Postoperative changes compatible with laminectomy at the L4 and L5 levels. Posterior interbody vera and screw fusion extends from L3-L5. Prior discectomy at L4-L5. Multilevel endplate spurring, facet arthropathy and intervertebral disc space narrowing. 3 mm retrolisthesis L2 on L3 and 3 mm anterolisthesis L5 on S1 with otherwise satisfactory alignment. No evidence of hardware fracture. No retained foreign bodies identified. Multilevel moderate to severe facet arthropathy. No acute fracture or subluxation identified. Evaluation of the soft tissues demonstrates a few scattered foci of deep tissue air within the subcutaneous tissues to the surgical site. Soft tissue stranding and minimal ill-defined fluid is noted within the posterior subcutaneous tissues near the surgical site, notably at the L4-L5 level as seen on image 210 series 3 which is obscured by overlying streak artifact. No acute intra-abdominal or intrapelvic abnormality identified. IMPRESSION: 1. Postoperative changes of the lumbar spine at L3-L5 as above. Mild deep tissue air with soft tissue stranding and fluid is noted within the posterior soft tissues about the surgical site notably at the L4-L5 level, likely expected postoperative findings with superimposed abscess or hematoma also in the differential. Correlate with patient presentation. If of further clinical concern a follow-up MRI may be considered. 2. 3 mm retrolisthesis L2 on L3 and 3 mm anterolisthesis L5 on S1 with multilevel intervertebral disc space narrowing, endplate spurring and facet arthropathy. 3. 14 degrees levoscoliosis. The above report was generated using voice recognition software. It may contain grammatical, syntax or spelling errors. Electronically signed by: Christian San M.D. 06/17/2017 6:52 AM Dictated Date/Time: 06/17/2017 6:45 AM
--- NOTE | 2017-06-17 12:31 | EMERGENCY ROOM VISIT NOTE ---
ED Visit Note First contact with patient: 12:30 I assumed care of the patient at change of shift from Dr. Ahmadi. Patient was pending PT and OT evaluation and then acceptance to [facility].
--- NOTE | 2017-06-17 17:23 | EMERGENCY ROOM VISIT NOTE ---
ED Visit Note First contact with patient: 17:18 The patient is a 72-year-old female who is status post lumbar decompression surgery for spinal stenosis. The patient was seen in our facility last evening for severe pain. She tried taking the pain medication but was unable to take the medications due to side effects. She had laboratory and radiographic studies initially when she presented. I reviewed the laboratory radiographic studies with her and her daughters. The patient was kept in the emergency department pending an evaluation for possible placement for inpatient rehabilitation. The patient has been seen by our emergency Department director of casework department's. They have been trying to place the patient however due to insurance issues we are unable to place her at this time. I do feel the patient is having significant pain especially with any ambulation. I discussed this situation with her daughters as well as with the patient. At this time I'll [facility] I also discussed her case with her primary orthopedic group. They have agreed to keep the patient in the hospital For further inpatient management and then further placement can be made through inpatient social service. The patient was agreeable with this plan.
[2017-06-17] MEDS ORDERED: HYDROmorphone INJ 0.5 MG/0.5 ML SYR IV PRN (17:45)
[2017-06-17 18:21] VITALS: O2SAT 98
[2017-06-17 18:34] VITALS: Ht 160 cm; Wt 83.5 kg
[2017-06-17] MEDS ORDERED: ONDANSETRON INJ 2 MG/ML 2 ML VIAL IV PRN (18:45)
[2017-06-17] MEDS ORDERED: ACETAMINOPHEN IV 650 MG in EMPTY BAG 0 ML IV PRN (18:45)
[2017-06-17] MEDS ORDERED: NITROGLYCERIN 0.4 MG SL PER TAB CHARGE UT PRN (18:45)
[2017-06-17] MEDS ORDERED: KETOROLAC TROMETHAMINE 15 MG/ML VIAL IV PRN (18:45)
[2017-06-17] MEDS ORDERED: LORAZEPAM 1 MG TAB PO PRN (18:45)
[2017-06-17 19:30] VITALS: BP 182/70; PULSE 89; TEMP 36.9; O2SAT 99
[2017-06-17 19:50] VITALS: BP 157/74; PULSE 89
[2017-06-17] MEDS ORDERED: IV FLUIDS COMPLETED PRN (20:00)
[2017-06-17] MEDS ORDERED: ROSUVASTATIN CALCIUM 5 MG TAB PO SCH (21:00)
[2017-06-17] MEDS ORDERED: METOPROLOL TARTRATE 25 MG TAB PO SCH (21:00)
[2017-06-17] MEDS ORDERED: CITALOPRAM 20 MG TAB PO SCH (21:00)
[2017-06-17] MEDS: DOCUSATE SODIUM 100 MG CAP PO SCH (21:42)
[2017-06-17] MEDS: FLUTICASONE/SALMETEROL 250/50 (ADVAIR) 14 PUFF/1 INHALER INH SCH (21:42)
[2017-06-17 23:25] VITALS: BP 143/67; PULSE 66; TEMP 37; O2SAT 94
[2017-06-18 07:16] VITALS: BP 147/71; PULSE 67; TEMP 37; O2SAT 95
[2017-06-18] MEDS: FLUTICASONE/SALMETEROL 250/50 (ADVAIR) 14 PUFF/1 INHALER INH SCH (08:58)
[2017-06-18] MEDS ORDERED: MULTIVITAMIN TAB PO SCH (09:00)
[2017-06-18] MEDS: DOCUSATE SODIUM 100 MG CAP PO SCH (09:00)
[2017-06-18] MEDS ORDERED: METOPROLOL TARTRATE 25 MG TAB PO SCH (09:00)
[2017-06-18] MEDS ORDERED: LOSARTAN POTASSIUM 50 MG TAB PO SCH (09:00)
[2017-06-18] MEDS ORDERED: PANTOprazole SOD 40 MG TAB PO SCH (09:00)
[2017-06-18] MEDS ORDERED: CALCIUM 600MG + VIT D 400 IU TAB PO SCH (09:00)
[2017-06-18] MEDS ORDERED: ASPIRIN 81 MG ECTAB PO SCH (09:00)
[2017-06-18] MEDS ORDERED: FUROSEMIDE 40 MG TAB PO SCH (09:00)
--- NOTE | 2017-06-18 09:41 | Discharge Instructions ---
Discharge Instructions Date of Service Jun 18, 2017. Admission Reason for Admission: Postoperative Back Pain Discharge Discharge Diagnosis / Problem: lumbar stenosis Discharge Goals Goal(s): Improve function Activity Recommendations Activity Limitations: per Instructions/Follow-up section . Instructions / Follow-Up Instructions / Follow-Up ACTIVITY RECOMMENDATIONS: SELF CARE INSTRUCTIONS AFTER THORACIC/LUMBAR FUSIONS 1. You may walk to your tolerance. It is good exercise for your legs and back. Expect some back and intermittent leg aches and pains. 2. You may perform "counter-top" level activities (make a sandwich, bryon with a project, etc.). 3. No bending or lifting of more than 10 pounds or back twisting of any nature (roll like a log when turning in bed). 4. You may ride in a car for 20-30 minutes at a time. No driving until after your first visit with your doctor. 5. Frequent changes of position and restricting sitting to 30 minutes at a time will help limit the amount of back spasms and stiffness you may experience. 6. You may discontinue the use of ambulatory aids (cane, crutches, etc.) once your strength and confidence allow. 7. You may physical therapy instructor the shower and let water strike your incision when you arrive home at least once daily. Do not take a tub bath, sit in a hot tub or go into a swimming pool until after your first recheck in the office. SPECIAL CARE INSTRUCTIONS: VERY IMPORTANT TO READ AND REVIEW A. Your surgical incision has been closed with a cosmetic suture under the skin that will dissolve in about 6 weeks. In 14 days, you can use a pair of clean scissors and cut the suture that is left outside of the skin at the ends of your incision. 1. The small skin tapes can be removed 7 days after surgery if they have not fallen off by that point. 2. You may keep the wound open to air as much as possible to promote healing after post-op day number 5 unless told otherwise by your doctor. 3. If you think the wound looks like it is becoming infected (redness or worsening drainage) and/or you are experiencing fever, chill or worsening back pain and muscle spasms, contact the office so that we may evaluate you as soon as possible. B. Complications are uncommon, but please contact us if you have any signs or symptoms of: 1. wound infection (fever higher than 102.5 degrees F, redness, separation of wound, drainage, or increasing pain from the incision) 2. blood clots in legs (pain, swelling, redness and warmth in legs) 3. urinary tract infection (fever higher than 102.5 degrees F, burning upon urination or increased frequency of urination) 4. nerve problems (inability to walk on your toes or heels, numbness, loss of bowel or bladder control) 5. any other symptoms that concern you C. Please call the office at if you have any concerns or questions about your operation or recovery. D. No smoking! Smoking drastically decreases the chance of a solid fusion. E. Do not take any anti-inflammatory medications (Indocin, Advil, Motrin, Aspirin, Naprosyn, etc.) as these may inhibit the chance of a solid fusion. Tylenol is okay to take for pain. MANAGING PAIN AFTER SPINAL SURGERY 1. Narcotic medication is intended for short-term use and will be provided for surgical pain. Surgical pain usually lasts for a period of 4-6 weeks. Narcotic medication includes Percocet, Vicodin, Darvocet, Tylenol #3 or Lortab. 2. Longer-term pain is more appropriately treated with non-narcotic medication such as Tylenol ES. 3. Muscle spasm is not appropriately treated with narcotics. Muscle relaxers such as Soma, Flexeril or Skelaxin can be used along with Tylenol ES. 4. Remember that we all live with some "aches and pains". This is not unusual or uncommon after an injury or as we get older. a. Back pain is expected and may include muscle spasms for 4 to 6 weeks after surgery. The pain should gradually improve. If the pain worsens for no apparent reason, please contact the office. b. Intermittent leg pain may also be experienced and should not be concerned about unless it worsens for no apparent reason. If so, please contact the office. 5. We will provide appropriate medication within the normal guidelines of their prescribed use. We will also be very cautious and aware of potential abuse and extended duration of patients' medication needs. a. Pain medications are for your comfort and to assist with sleep and rest so that the tissue can heal. They are not provided in order to return to normal activity and should not be used through the day. To do so or worsening pain at night can result from ongoing tissue damage and development of tolerance to the prescribed medicine. 6. Please allow 2-3 days to process refills. Prescriptions will not be mailed but must be picked up at the office. FOLLOW UP VISIT: Keep your scheduled follow-up appointment. Any questions, please call the office at . Current Hospital Diet Patient's current hospital diet: Regular Diet Discharge Diet Recommended Diet: Regular Diet Pending Studies Studies pending at discharge: no Medical Emergencies . Who to Call and When: Medical Emergencies: If at any time you feel your situation is an emergency, please call 911 immediately. . Non-Emergent Contact Non-Emergency issues call your: Primary Care Provider . "Provider Documentation" section prepared by Moe Walker. . VTE Core Measure Inpt VTE Proph given/why not?: Nba Colmenares, SCD's
[2017-06-18] MEDS ORDERED: DEXAMETHASONE INJ 8 MG in SYRINGE 0 ML IV SCH (10:00)
--- NOTE | 2017-06-18 10:03 | History and Physical ---
History & Physical Date Jun 18, 2017. Chief Complaint Back and right leg pain History of Present Illness The patient is a 72 year old female with complaints of back and right leg pain. She is well-known to me having undergone lumbar decompression fusion should progressed nicely postoperatively but upon return to her home again have decline in status. She was unable to tolerate narcotic pain medications. She complains of modest back pain though states his controlled this morning. She does have pain involving the right buttock and greater trochanteric IT band region. Left lower extremities astigmatic. She denies any symptoms extending below the knees into the feet. She is able to and plate without difficulty with the use of a walker. Denies any changes in bowel bladder function. Denies any fevers and chills. Past Medical/Surgical History Medical Problems: (1) Lumbar stenosis with neurogenic claudication Additional History Hepatic Disease: No Endocrine Disorder: No Kidney Disease: No Hypertension: No Heart Disease: No Bleeding Tendencies: No Infectious Diseases: No Allergies Coded Allergies: Oxycodone (Verified Allergy, Unknown, SEVERE NAUSEA AND VOMITNG, 06/17/17) Home Medications Scheduled Aspirin (Aspirin Ec), 81 MG PO QAM Calcium/Vitamin D (Os-Priyank 500 Plus D), 1,000 MG PO QAM Cholecalciferol (Vitamin D3), 1 CAP PO HS Citalopram Hydrobromide (Celexa), 20 MG PO QPM Fluticasone Prop/Salmeterol (Advair Diskus 250/50 60 Dose), 1 PUFF INH BID Furosemide (Lasix), 40 MG PO QAM Losartan Potassium (Cozaar), 50 MG PO QAM Metoprolol Tartrate (Lopressor), 25 MG PO QPM Metoprolol Tartrate (Lopressor) (Lopressor), 12.5 MG PO QAM Multivitamin (Multivitamin), 1 TAB PO QAM Nitroglycerin (Nitrostat), 0.4 MG UT PRN Omeprazole (Prilosec), 40 MG PO QAM Rosuvastatin Calcium (Crestor), 5 MG PO HS Scheduled PRN Hydrocodone/Acetaminophen 5MG/325MG ([place] 5MG/325MG), 1-2 TAB PO Q4H PRN for Moderate - severe pain Mupirocin 2% (Bactroban 2%), 1 APPLN EXT UD PRN for PRN Physical Examination Skin: warm/dry, no rash Eyes: normal inspection, EOMI, sclerae normal ENT: normal ENT inspection, pharynx normal Head: normocephalic, atraumatic Neck: supple, no adenopathy, trachea midline Respiratory/Chest: lungs clear, normal breath sounds, no respiratory distress Cardiovascular: regular rate, rhythm, no edema, no murmur Abdomen / GI: normal bowel sounds, non tender Back: normal inspection Extremities: normal inspection, normal range of motion Neurologic/Psych: no motor/sensory deficits, alert, normal reflexes, oriented x 3 Addiitonal Comments: Patient is sitting in chair at the bedside. Her lumbar incision is healing well. There is no erythema or drainage. Is nontender to palpation. She is +5 over 5 plantar flexion dorsiflexion quadriceps bilaterally. Negative logroll bilaterally. Sensory symmetric and intact. She has significant tenderness palpation the right greater trochanter and IT band. Diagnosis Greater trochanteric bursitis status post lumbar decompression fusion. Plan of Treatment At this time we plan to transfer the patient to a shelter facility or rehabilitation facility. This would help facilitate her recovery. We'll see her back in the office in a week.
--- NOTE | 2017-06-18 10:04 | Discharge Summary ---
Orthopedic Discharge Summary Admission Date/Reason Jun 17, 2017 at 18:47 Postoperative Back Pain. Discharge Date/Disposition Jun 18, 2017 Rehab Diagnosis Principal Diagnosis: Right leg pain status post lumbar decompression fusion Admission Physical Exam As per Admitting History & Physical. Hospital Course Patient was admitted from the emergency room yesterday. Struggling with some modest back pain and right leg pain and the pattern of greater trochanteric bursitis. This morning she is comfortable including well with a walker. We're arranging transfer to a rehabilitation facility. Discharge Instructions Please refer to the electronic Patient Visit Report (Discharge Instructions) for additional information.
[2017-06-18 15:09] VITALS: BP 147/70; PULSE 88; TEMP 36.8; O2SAT 96
[2017-06-18 17:22] VITALS: BP 147/70; PULSE 88; TEMP 36.8; O2SAT 96
== END 2017-06-18 18:00 ==
LOC: EDSEX 01:53 → EDBD 01:53 → C.EDA 01:54 → C.MSW 18:47 → ENRESERV 18:53
PROVIDERS: ADMIT Orthopaedic Surgery Orthopaedic Surgery of the Spine; ATTEND Orthopaedic Surgery Orthopaedic Surgery of the Spine
DX: M54.5 Low back pain (principal); Z79.82 Long term (current) use of aspirin; Z98.1 Arthrodesis status

== ENCOUNTER 2018-02-18 09:18 | Inpatient (IN) | payer OTHER ==
[2018-02-10 13:34] VITALS: Ht 160 cm; Wt 68.2 kg
[2018-02-18] VITALS (8 sets, daily range): BP systolic 107–172; BP diastolic 64–73; PULSE 70–98; TEMP 36.5–36.9; O2SAT 95–99
[~2018-02-18] VITALS: Ht 160 cm; Wt 68.2 kg
[~2018-02-18 09:18] MED LIST changes: +ACET-1256 PO; +ACETAMINOPHEN 500 MG TAB PO SCH; -BCTCR/30 EXT; +CEFAZOLIN 1000MG IV PUSH 7.5 ML IV SCH; +CeleBREX 200 MG CAP PO SCH; +GABAPENTIN 300 MG CAP PO SCH; -HYDR-5688 PO; +HYDR200T5 PO; +LACTATED RINGER'S 1000ML 1,000 ML IV SCH
[2018-02-18] MEDS ORDERED: PROPOFOL IV EMULSION 10 MG/ML 20 ML VIAL ONE (12:13)
[2018-02-18] MEDS ORDERED: LIDOCAINE HCL 2% 2 ML VIAL (20MG/ML) ONE (12:13)
[2018-02-18] MEDS ORDERED: ROCURONIUM BROMIDE 10 MG/ML 5 ML VIAL ONE (12:13)
[2018-02-18] MEDS ORDERED: MIDAZOLAM HCL 1 MG/ML 2ML VIAL ONE (12:14)
[2018-02-18] MEDS ORDERED: FENTANYL CITRATE INJ 50 MCG/1 ML 2 ML VIAL ONE ×3 (12:14→15:06)
--- NOTE | 2018-02-18 12:29 | History and Physical ---
History & Physical Date Feb 18, 2018. Chief Complaint Back and leg pain History of Present Illness The patient is a 73 year old female with complaints of back and leg pain Past Medical/Surgical History Medical Problems: (1) Lumbar stenosis with neurogenic claudication Additional History Hepatic Disease: No Endocrine Disorder: No Kidney Disease: No Hypertension: Yes Heart Disease: No Bleeding Tendencies: No Infectious Diseases: No Allergies Coded Allergies: Hydrocodone (Verified Allergy, Unknown, SEVERE NAISEA VOMITING DISORIENTED , 02/18/18) Oxycodone (Verified Allergy, Unknown, SEVERE NAUSEA AND VOMITNG, 02/18/18) Home Medications Scheduled Acetaminophen (Tylenol), 1,000 MG PO PRN Aspirin (Aspirin Ec), 81 MG PO QAM Calcium/Vitamin D (Os-Priyank 500 Plus D), 1,000 MG PO PRN Cholecalciferol (Vitamin D3), 1 CAP PO HS Citalopram Hydrobromide (Celexa), 20 MG PO HS Fluticasone Prop/Salmeterol (Advair Diskus 250/50 60 Dose), 1 PUFF INH QAM Furosemide (Lasix), 40 MG PO QAM Hydroxychloroquine Sulfate (Plaquenil), 200 MG PO BID Losartan Potassium (Cozaar), 50 MG PO QAM Metoprolol Tartrate (Lopressor), 25 MG PO QPM Metoprolol Tartrate (Lopressor) (Lopressor), 12.5 MG PO QAM Multivitamin (Multivitamin), 1 TAB PO PRN Nitroglycerin (Nitrostat), 0.4 MG UT PRN Omeprazole (Prilosec), 40 MG PO QAM Rosuvastatin Calcium (Crestor), 5 MG PO HS Physical Examination Skin: warm/dry, no rash Eyes: normal inspection, EOMI, sclerae normal ENT: normal ENT inspection, pharynx normal Head: normocephalic, atraumatic Neck: supple, no adenopathy, trachea midline Respiratory/Chest: lungs clear, normal breath sounds, no respiratory distress Cardiovascular: regular rate, rhythm, no edema, no murmur Abdomen / GI: normal bowel sounds, non tender Back: normal inspection Extremities: normal inspection, normal range of motion Neurologic/Psych: no motor/sensory deficits, alert, normal reflexes, oriented x 3 Diagnosis Lumbar spinal stenosis with degenerative scoliosis and neurogenic claudication Plan of Treatment L5-S1 decompression possible L2-L3 to decompression L3-S1 fusion hardware removal L3-5
[2018-02-18] MEDS ORDERED: BUPIVACAINE LIPOSOME 1/3% 266 MG/20 ML VIAL ONE (12:59)
[2018-02-18] MEDS ORDERED: SODIUM CHLORIDE 0.9% PF 50 ML VIAL ONE (12:59)
[2018-02-18] MEDS ORDERED: BUPIVACAINE/EPINEPHRINE 0.5% MPF 1:200,000 30 ML VIAL ONE (13:00)
[2018-02-18] MEDS ORDERED: BACITRACIN 50000 UNIT VIAL ONE (13:00)
[2018-02-18] MEDS ORDERED: BUPIVACAINE 0.25% 30 ML VIAL ONE (13:05)
[2018-02-18] MEDS ORDERED: ONDANSETRON INJ 2 MG/ML 2 ML VIAL ONE (13:31)
[2018-02-18] MEDS ORDERED: DEXAMETHASONE SOD INJ 4 MG/ML VIAL ONE (13:31)
[2018-02-18] MEDS ORDERED: HYDROmorphone INJ 2 MG/ML SYR/VIAL ONE (14:09)
[2018-02-18] MEDS ORDERED: FLOSEAL HEMOSTATIC MATRIX 10ML TOP ONE (15:30)
--- NOTE | 2018-02-18 15:42 | [facility] Operative Report ---
Operative Report Operative Date Feb 18, 2018. Pre-Operative Diagnosis Lumbar spinal stenosis with degenerative scoliosis and neurogenic claudication Post-Operative Diagnosis Lumbar spinal stenosis with degenerative scoliosis and neurogenic claudication Procedure(s) Performed 1. Removal of posterior instrumentation L3-4 L4-5. #2 exploration of fusion L3-4 L4-5 #3 revision decompression medial facetectomies foraminotomies L5-S1. #4 posterior spinal fusion L2-S1. #5 placement posterior segmental instrumentation L2-S1. #6 interbody fusion L5-S1. #7 placement peek cage 9 x 22 mm at L5-S1. #8 placement of local autograft in the posterior lateral gutters. #9 placement of infuse collagen sponge, Nast graft in the posterior gutters and ostial amp interbody space. Surgeon Dr. Walker Algorithm Design Engineer Surgeon(s) MARISOL Petersen Estimated Blood Loss 250 ml Findings Severe spinal stenosis and neural foraminal disease Specimens A. Removed lumbar hardware Anesthesia Type General Description of Procedure Patient was met with preoperatively case discussed all questions addressed. After informed consent obtained patient was taken to the operative suite underwent intubation and placed in a prone position on the Jc table on top of the Mika frame all bony prominences well-padded eyes inspected to ensure no external pressure placed upon. This point the lumbar spine was prepped and draped in normal sterile fashion. Sharp dissection with the assistance of Bovie cautery was performed down to and exposing the lamina and transverse processes of L2 L3-L4-L5 and sacral ala bilaterally. Then proceeded remove the hardware at L3 L4-5 bilaterally explain the fusion mass appreciating it to be intact. Then performed revision complete laminectomy of L5 facetectomy on the right and a foraminotomy addressing severe compression of the exiting nerve root. Pedicle screws were then placed in L2-L3 L5 and S1 levels bilaterally with the assistance of fluoroscopy and through a transforaminal approach on the right complete discectomy was performed endplates created to subcortical bleeding bone and a 9 x 22 mm peek cage filled with ostial amp bone graft tapped in position. Rods were then placed and locked in final position bilaterally. The transverse processes of L2 L3-L4-L5 and sacral ala burred to subcortical bleeding bone. Infuse collagen sponge master graft local autograft placed in the posterior gutters. Proximally 100 cc of Exparel injected into the musculature. 15 round JOSE drain inserted. Incision was then closed with 1 Vicryl in the fascia 2-0 Vicryl subcutaneous and a 4 Monocryl for fashion closure Steri-Strips sterile dressings placed. Patient will continue PACU stable condition. Please note Sukh Lawson present throughout the entire procedure involved in patient positioning complex portions of the surgery and final skin closure. I attest to the content of the Intraoperative Record and any orders documented therein. Any exceptions are noted below.
[2018-02-18] MEDS ORDERED: MAGNESIUM HYDROXIDE SUSP 30 ML UDC PO PRN (15:45)
[2018-02-18] MEDS ORDERED: LORAZEPAM INJ 0.5 MG in SYRINGE 0.75 ML IV PRN (15:45)
[2018-02-18] MEDS ORDERED: BISACODYL 10 MG SUPP PR PRN (15:45)
[2018-02-18] MEDS ORDERED: DO NOT ADMINISTER FLU VACCINE PRN (15:45)
[2018-02-18] MEDS ORDERED: MULTIVITAMIN TAB PO SCH (15:45)
[2018-02-18] MEDS ORDERED: SOD PHOSPHATE/SOD BIPHOSPHATE ENEMA 132 ML BTL PR PRN (15:45)
[2018-02-18] MEDS ORDERED: DO NOT ADMINISTER PNEUMOCOCCAL VACCINE PRN (15:45)
[2018-02-18] MEDS ORDERED: METOCLOPRAMIDE HCL INJ 5 MG/ML 2 ML VIAL IV PRN (15:45)
[2018-02-18] MEDS ORDERED: ACETAMINOPHEN IV 100 ML IV PRN (15:45)
[2018-02-18] MEDS ORDERED: hydrOXYzine HCL 25 MG TAB PO PRN (15:45)
[2018-02-18] MEDS ORDERED: ONDANSETRON INJ 2 MG/ML 2 ML VIAL IV PRN (15:45)
[2018-02-18] MEDS ORDERED: NALOXONE HCL 0.4 MG/1 ML VIAL/CARP IV PRN (15:45)
[2018-02-18] MEDS ORDERED: NITROGLYCERIN 0.4 MG SL PER TAB CHARGE UT PRN (15:45)
[2018-02-18] MEDS ORDERED: CEFAZOLIN IV 1,000 MG in DEXTROSE 5% 50ML 50 ML IV SCH (15:45)
[2018-02-18] MEDS ORDERED: LORAZEPAM 0.5 MG TAB PO PRN (15:45)
[2018-02-18] MEDS ORDERED: FAMOTIDINE 20 MG TAB PO PRN (15:45)
[2018-02-18] MEDS ORDERED: HYDROmorphone INJ 0.5 MG/0.5 ML SYR IV PRN (15:45)
[2018-02-18] MEDS ORDERED: ALUMINUM/MAGNESIUM SUSP 30 ML UDC PO PRN (15:45)
[2018-02-18] MEDS ORDERED: PROMETHAZINE HCL INJ 12.5 MG in SODIUM CHLORIDE 0.9% 50ML 50 ML IV PRN (15:45)
--- NOTE | 2018-02-18 17:41 | Anesthesiology Progress Note ---
Anesthesia Post Op Note Date & Time Feb 18, 2018 at 17:29 Vital Signs Pain Intensity: 0 Vital Signs Past 12 Hours Date Time Temp Pulse Resp B/P (MAP) Pulse Ox O2 Delivery O2 Flow Rate FiO2 02/18/18 17:20 91 14 138/65 97 Nasal Cannula 4 02/18/18 17:10 92 24 148/75 98 Nasal Cannula 4 02/18/18 17:00 91 22 147/65 98 Nasal Cannula 4 02/18/18 16:50 90 12 149/84 100 Oxymask 10 02/18/18 16:40 97 13 175/72 100 Oxymask 10 02/18/18 16:30 95 22 161/82 99 Oxymask 10 02/18/18 16:24 36.2 84 13 158/64 97 Oxymask 10 02/18/18 10:05 36.6 73 18 172/72 99 Room Air Notes Mental Status: alert / awake / arousable, participated in evaluation Pt Amnestic to Procedure: Yes Nausea / Vomiting: adequately controlled Pain: adequately controlled Airway Patency, RR, SpO2: stable & adequate BP & HR: stable & adequate Hydration State: stable & adequate Anesthetic Complications: Initially on arriving to PACU the patient had difficulty moving her arms and legs and she was holding her head in full extension. Her appearance was almost dystonic in nature. During her stay in PACU the patient became more alert and was slowly able to move her arms and legs without issues. The patient continued to hold her head in extension. When I spoke to the patient at the end of her PACU stay, she stated that the degree of movement in her upper and lower extremities felt normal to her. She also stated that the positioning of her head felt normal to her. The patient's initial stiffness leaving the operating room likely was secondary to anesthetic medications or to the combination of anesthesia and her home medications. At the time of discharge from PACU, the patient's findings had improved significantly and I suspect that some of the remaining head extension was likely present preoperatively, since the patient states everything feels pretty normal to her right now. Dr. Walker consulted [facility] hospitalists and so I called and spoke with Carolyne Guardado. I shared the patient's PACU course and encouraged the hospitalist team to call us at anytime tonight or tomorrow if they have any questions or concerns. I also updated Dr. Walker on the patient's status. Queenie Adame MD, PhD Anesthesiology
--- NOTE | 2018-02-18 18:05 | DIAGNOSTIC IMAGING REPORT ---
LUMBAR SPINE 2 OR 3 VIEW HISTORY: 73 years-old Female L5-S1 DECOMPRESSION, L3-S1 FUSION status post decompression and fusion of the lumbar spine COMPARISON: Fluoroscopic images of the lumbar spine 06/08/2017, CT lumbar spine 06/17/2017 TECHNIQUE: 3 spot fluoroscopic images of the lumbar spine were obtained utilizing 23.4 seconds fluoroscopy time FINDINGS: Posterior vera and screw fusion hardware extends from the L2-S1 levels. Discectomy changes are seen at L3-L4 and L4-L5. Status post removal of the pedicle screws at L4. Alignment appears satisfactory. Multilevel spondylitic spurring without fracture identified. Dextroscoliosis. No definite retained foreign body. IMPRESSION: Fluoroscopic assistance as above. Please see operative report for further details. The above report was generated using voice recognition software. It may contain grammatical, syntax or spelling errors. Electronically signed by: Christian San M.D. 02/18/2018 6:04 PM Dictated Date/Time: 02/18/2018 6:03 PM
--- NOTE | 2018-02-18 20:13 | Medical Consult ---
Consultation Date of Consultation: Feb 18, 2018. Attending Physician: Moe Walker D.O. Reason for Consultation: post-op medical management History of Present Illness This is a 73yo F with a PMH of HTN, CAD (s/p CABG), asthma, GERD, lumbar stenosis with neurogenic claudication and other medical problems listed below who is POD #0 s/p L5-S1 decompression fusion and L3-L5 hardware removal by Dr. Walker. Had a decompression fusion surgery this past May, also performed by Dr. Walker. Patient is doing well post-operatively. States that back pain is a 4/10. Received a call from anesthesia postoperatively about patient appearing stiff, with neck extension. Patient denies any discomfort or abnormalities. States this is a normal position for her. Denies any fever, chills, lightheadedness, headache, visual changes, sore throat, CP, SOB, abdominal pain, nausea, vomiting, dysuria or LE swelling. Last BM was yesterday. PCP is Dr. Perales. Past Medical/Surgical History Medical Problems: (1) Arthritis Status: Chronic (2) Asthma Status: Chronic (3) CAD (coronary artery disease) Permanent Comment: s/p CABG Status: Chronic (4) GERD (gastroesophageal reflux disease) Status: Chronic (5) HTN (hypertension) Status: Chronic (6) Lumbar stenosis with neurogenic claudication Status: Chronic (7) Mood disorder Status: Chronic Surgical Problems: (1) H/O hernia repair Status: Chronic (2) H/O: hysterectomy Status: Chronic (3) S/P spinal surgery Permanent Comment: Decompression fusion in May 2017 [address] Walker Status: Chronic Family History Diabetes mellitus FH: Alzheimers disease Social History Smoking Status: Never Smoker Alcohol Use: occasionally Marital Status: Housing Status: lives alone Occupation Status: retired Allergies Coded Allergies: Hydrocodone (Verified Allergy, Unknown, SEVERE NAISEA VOMITING DISORIENTED , 02/18/18) Oxycodone (Verified Allergy, Unknown, SEVERE NAUSEA AND VOMITNG, 02/18/18) Home Medications Reported Home Medications Medications Dose Route/Sig Max Daily Dose Days Date Category Dose Instructions Plaquenil (Hydroxychloroquine Sulfate) 200 Mg Tab 200 Mg PO BID 02/10/18 Reported 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 Tylenol (Acetaminophen) 500 Mg Tab 1,000 Mg PO PRN 02/10/18 Reported Nitrostat (Nitroglycerin) 0.4 Mg Tab 0.4 Mg UT PRN 05/13/17 Reported Os-Priyank 500 Plus D (Calcium/Vitamin D) Tab 1,000 Mg PO PRN 05/13/17 Reported Vitamin D3 (Cholecalciferol) 2,000 Unit Cap 1 Cap PO HS 90 05/13/17 Reported Multivitamin (Multivitamins) Tab 1 Tab PO PRN 05/13/17 Reported Advair Diskus 250/50 60 Dose (Fluticasone Prop/Salmeterol) 1 Ea Aerp 1 Puff INH QAM 05/13/17 Reported Cozaar (Losartan Potassium) 50 Mg Tab 50 Mg PO QAM 05/13/17 Reported Lasix (Furosemide) 40 Mg Tab 40 Mg PO QAM 05/13/17 Reported Celexa (Citalopram Hydrobromide) 20 Mg Tab 20 Mg PO HS 05/13/17 Reported Lopressor (Metoprolol Tartrate) 25 Mg Tab 25 Mg PO QPM 05/13/17 Reported Lopressor (Metoprolol Tartrate) 25 Mg Tab 12.5 Mg PO QAM 05/13/17 Reported Aspirin Ec (Aspirin) 81 Mg Tab 81 Mg PO QAM 05/13/17 Reported PT WILL CHECK WITH SURGEON FOR INSTRUCTIONS Crestor (Rosuvastatin Calcium) 10 Mg Tab 5 Mg PO HS 05/13/17 Reported Prilosec (Omeprazole) 20 Mg Capcr 40 Mg PO QAM 05/13/17 Reported Current Inpatient Medications Current Inpatient Medications Medications (Trade) Dose Ordered Sig/Jonh Route Start Time Stop Time Status Last Admin Dose Admin Lactated Ringer's 1,000 ml @ 15 mls/hr Q24H IV 02/18/18 06:00 02/19/18 05:59 02/18/18 10:31 15 MLS/HR Promethazine HCl 12.5 mg/Sodium Chloride 50.5 ml @ 202 mls/hr Q6H PRN IV 02/18/18 15:45 03/20/18 15:44 Ondansetron HCl (Zofran Inj) 4 mg Q6H PRN IV 02/18/18 15:45 03/20/18 15:44 Metoclopramide HCl (Reglan Inj) 10 mg Q6H PRN IV 02/18/18 15:45 03/20/18 15:44 Lorazepam (Ativan Tab) 0.5 mg Q8H PRN PO 02/18/18 15:45 03/20/18 15:44 Lorazepam 0.5 mg/ Syringe 1 ml @ 1 mls/min Q8H PRN IV 02/18/18 15:45 03/20/18 15:44 Pneumococcal Polysaccharide Vaccine 1 ea PRN PRN N/A 02/18/18 15:45 03/20/18 15:44 Influenza Virus Vacc Triv Types A&B 1 ea PRN PRN N/A 02/18/18 15:45 03/20/18 15:44 Polyethylene (Miralax Powder Packet) 17 gm Q6 PO 02/20/18 06:00 03/22/18 05:59 Bisacodyl (Dulcolax Supp) 10 mg DAILY PRN [place] 02/18/18 15:45 03/20/18 15:44 Magnesium Hydroxide (Milk Of Magnesia Susp) 30 ml DAILY PRN PO 02/18/18 15:45 03/20/18 15:44 Hydromorphone HCl (Dilaudid Inj) 0.5-1mg prn moder... Q3H PRN IV 02/18/18 15:45 03/04/18 15:44 Sodium Chloride 1,000 ml @ 150 mls/hr Q6H40M IV 02/18/18 15:43 03/20/18 15:42 Acetaminophen (Tylenol Tab) 1,000 mg Q8H PRN PO 02/18/18 15:45 03/20/18 15:44 Acetaminophen 100 ml @ 400 mls/hr Q8H PRN IV 02/18/18 15:45 03/20/18 15:44 Naloxone HCl (Narcan Inj) 0.1 mg Q5M PRN IV 02/18/18 15:45 03/20/18 15:44 Senna/Docusate Sodium (Senokot S Tab) 2 tab HS PO 02/18/18 21:00 03/20/18 20:59 Sodium Biphosphate/ Sodium Phosphate (Fleet Enema) 132 ml ONE PRN [place] 02/18/18 15:45 03/20/18 15:44 Hydroxyzine HCl (Vistaril Tab) 25 mg Q8H PRN PO 02/18/18 15:45 03/20/18 15:44 Al Hydroxide/Mg Hydroxide (Maalox Susp) 30 ml Q6H PRN PO 02/18/18 15:45 03/20/18 15:44 Famotidine (Pepcid Tab) 20 mg Q12 PRN PO 02/18/18 15:45 03/20/18 15:44 Diphenhydramine HCl (Benadryl Cap) 25 mg Q6H PRN PO 02/18/18 15:45 03/20/18 15:44 Aspirin (Ecotrin Tab) 81 mg QAM PO 02/19/18 09:00 03/21/18 08:59 Citalopram Hydrobromide (celeXA TAB) 20 mg HS PO 02/18/18 21:00 03/20/18 20:59 Salmeterol Xinafoate/ Fluticasone (Advair Diskus 250/50 Inh) 1 puff QAM INH 02/19/18 09:00 03/21/18 08:59 Furosemide (Lasix Tab) 40 mg QAM PO 02/19/18 09:00 03/21/18 08:59 Losartan Potassium (coZAAR TAB) 50 mg QAM PO 02/19/18 09:00 03/21/18 08:59 Metoprolol Tartrate (Lopressor Tab) 25 mg QPM PO 02/18/18 21:00 03/20/18 20:59 Metoprolol Tartrate (Lopressor Tab) 12.5 mg QAM PO 02/19/18 09:00 03/21/18 08:59 Multivitamins (Multivitamin Tab) 1 tab PRN PO 02/18/18 15:45 03/20/18 15:44 Nitroglycerin (Nitrostat Tab) 0.4 mg UD PRN UT 02/18/18 15:45 03/20/18 15:44 Rosuvastatin Calcium (Crestor Tab) 5 mg HS PO 02/18/18 21:00 03/20/18 20:59 Pantoprazole Sodium (Protonix Tab) 40 mg QAM PO 02/19/18 09:00 03/21/18 08:59 Gabapentin (Neurontin Cap) 300 mg TID PO 02/18/18 21:00 03/20/18 20:59 Cefazolin Sodium 1000 mg/Syringe 7.5 ml @ 2.5 mls/min Q8H IV 02/18/18 21:00 02/19/18 05:02 Review of Systems Ten systems reviewed and negative except as noted in the HPI. Physical Exam Date Time Temp Pulse Resp B/P (MAP) Pulse Ox O2 Delivery O2 Flow Rate FiO2 02/18/18 20:01 36.9 92 18 117/70 (86) 98 Nasal Cannula 2.0 02/18/18 19:20 Nasal Cannula 3.0 02/18/18 18:40 36.9 98 20 138/73 (94) 98 Nasal Cannula 3.0 02/18/18 18:15 36.9 90 16 126/67 (86) 96 Nasal Cannula 3.0 02/18/18 18:10 97 Nasal Cannula 2.0 02/18/18 18:04 97 Nasal Cannula 2.0 02/18/18 17:47 36.5 95 16 133/65 (87) 97 Nasal Cannula 2.0 02/18/18 17:30 36.8 78 12 111/51 97 Nasal Cannula 4 02/18/18 17:20 91 14 138/65 97 Nasal Cannula 4 02/18/18 17:10 92 24 148/75 98 Nasal Cannula 4 02/18/18 17:00 91 22 147/65 98 Nasal Cannula 4 02/18/18 16:50 90 12 149/84 100 Oxymask 10 02/18/18 16:40 97 13 175/72 100 Oxymask 10 02/18/18 16:30 95 22 161/82 99 Oxymask 10 02/18/18 16:24 36.2 84 13 158/64 97 Oxymask 10 02/18/18 10:05 36.6 73 18 172/72 99 Room Air General Appearance: WD/WN, no apparent distress, + pertinent finding (Resting comfortably in bed) Head: normocephalic, atraumatic Eyes: normal inspection, PERRL, sclerae normal ENT: normal ENT inspection, hearing grossly normal, pharynx normal (Mucous membranes moist) Neck: supple, thyroid normal, trachea midline Respiratory/Chest: chest non-tender, lungs clear, normal breath sounds, no respiratory distress, no accessory muscle use Cardiovascular: no edema, no murmur, normal peripheral pulses, + tachycardia Abdomen/GI: non tender, soft, no organomegaly Back: normal inspection, + pertinent finding (Lumbar surgical dressing is clean , dry, intact. Drain visualized) Extremities/Musculoskelatal: normal inspection, no calf tenderness, no pedal edema, + pertinent finding (ROBERT swenson) Neurologic/Psych: no motor/sensory deficits, alert, normal mood/affect, oriented x 3 Skin: normal color, warm/dry Assessment & Plan This is a 73yo F with a PMH of HTN, CAD (s/p CABG), asthma, GERD, lumbar stenosis with neurogenic claudication and other medical problems listed below who is POD #0 s/p L5-S1 decompression fusion and L3-L5 hardware removal by Dr. Walker. Lumbar stenosis s/p decompression fusion: -POD #0 s/p L3-L5 hardware removal and L5-S1 decompression fusion by Dr. Walker -Doing well post-operatively -Per ortho for pain control, wound care, anticoagulation and activities -Monitor H&H, continue incentive spirometry, PT/OT when appropriate Tachycardia -HR of 98 -In setting of pain -Continue home dose Lopressor, pain medication PRN -Monitor HTN -Normotensive -Continue home dose Lopressor -Hold Lasix and losartan tomorrow AM -Plan to restart for following morning CAD (s/p CABG) -Stable -Continue baby aspirin, statin Asthma -Continue Advair inhaler GERD -Continue PPI ? Rheumatoid Arthritis -Recently started on Plaquenil by rheumatology -Unsure of diagnosis -Plaquenil held by ortho surgery Mood disorder -Continue SSRI PCP: Dr. Perales. Dispo: Per ortho Patient seen in collaboration with Dr. Gomez. Please see addendum. Will be followed by Dr. Ashraf starting tomorrow for remainder of hospitalization. Thank you for this consultation. We will follow the patient with you during their hospital stay. You can reach a member of the [facility] Hospitalist Team 18/01 via pager @ [phone]. Agree with above consult note. Briefly 73F s/p back surgery. tolerated procedure fine. Denies any pain at this time. No fevers/chills No nausea, no sob or chest pain, no blurry vision. resting comfortably and says she is doing fine. Can move her neck. 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 drain seen a.p S/P back surgery doing fine management as per ortho HTN continue Lopressor holding losartan and Lasix - to restart in 1-2 days
[2018-02-18] MEDS: DOCUSATE SODIUM/SENNA 50/8.6MG TAB PO SCH (21:33)
[2018-02-18] MEDS: METOPROLOL TARTRATE 25 MG TAB PO SCH (21:33)
[2018-02-18] MEDS: SODIUM CHLORIDE 0.9% 1000ML 1,000 ML IV SCH ×2 (21:33→21:54)
[2018-02-18] MEDS: CEFAZOLIN IV 1,000 MG in SYRINGE 0 ML IV SCH (21:33)
[2018-02-18] MEDS: ROSUVASTATIN CALCIUM 5 MG TAB PO SCH (21:33)
[2018-02-18] MEDS: GABAPENTIN 300 MG CAP PO SCH (21:34)
[2018-02-18] MEDS: CITALOPRAM 20 MG TAB PO SCH (21:34)
[2018-02-19] VITALS (7 sets, daily range): BP systolic 101–142; BP diastolic 57–70; PULSE 61–78; TEMP 36.5–36.9; O2SAT 94–98
[2018-02-19] MEDS: CEFAZOLIN IV 1,000 MG in SYRINGE 0 ML IV SCH (04:28)
[2018-02-19] MEDS: SODIUM CHLORIDE 0.9% 1000ML 1,000 ML IV SCH (04:28)
[2018-02-19 06:54] LABS: BASO % 0.1 %; BASO ABS # 0.01 K/uL (0-0.2); EOS % 0.2 %; EOS ABS # 0.02 K/uL (0-0.5); HEMATOCRIT 28.7 % (37-47); HEMOGLOBIN 9.4 g/dL (12.0-16.0); IG# 0.03 K/uL (0.00-0.02); LYMPH % 16.6 %; LYMPH ABS # 1.92 K/uL (1.2-3.4); MEAN CELL VOLUME 90.5 fL (80-100); MEAN CORPUSCULAR HEMOGLOBIN 29.7 pg (25-34); MEAN CORPUSCULAR HGB CONC 32.8 g/dl (32-36); MEAN PLATELET VOLUME 9.9 fL (7.4-10.4); MONO % 9.9 %; MONO ABS # 1.15 K/uL (0.11-0.59); NEUT % 72.9 %; NEUT ABS # 8.46 K/uL (1.4-6.5); PLATELET COUNT 223 K/uL (130-400); RED CELL DISTRIBUTION WIDTH CV 14.7 % (11.5-14.5); RED CELL DISTRIBUTION WIDTH SD 48.6 fL (36.4-46.3); WHITE BLOOD COUNT 11.59 K/uL (4.8-10.8)
[2018-02-19 07:23] LABS: CALCIUM 8.2 mg/dl (8.5-10.1); CREATININE 0.87 mg/dl (0.60-1.20); POTASSIUM 3.9 mmol/L (3.5-5.1)
[2018-02-19] MEDS ORDERED: LOSARTAN POTASSIUM 50 MG TAB PO SCH (09:00)
[2018-02-19] MEDS ORDERED: FUROSEMIDE 40 MG TAB PO SCH (09:00)
[2018-02-19] MEDS: FLUTICASONE/SALMETEROL 250/50 (ADVAIR) 14 PUFF/1 INHALER INH SCH (09:13)
[2018-02-19] MEDS: ASPIRIN 81 MG ECTAB PO SCH (09:14)
[2018-02-19] MEDS: PANTOprazole SOD 40 MG TAB PO SCH (09:14)
[2018-02-19] MEDS: GABAPENTIN 300 MG CAP PO SCH ×3 (09:15→20:46)
[2018-02-19] MEDS: METOPROLOL TARTRATE 25 MG TAB PO SCH ×2 (09:15→20:45)
--- NOTE | 2018-02-19 10:31 | Progress Note ---
Progress Note Date of Service Feb 19, 2018. Progress Note Patient's back pain is controlled leg symptoms are markedly improved. Vital signs are stable. On exam she is sitting up in bed appears very comfortable. She is good strength testing. Assessment status post revision decompression fusion. Plan at this time I will provide 1 more dose of Decadron today to help with soreness and pain. We will continue with therapy throughout the weekend assess her progress hopefully discharge Wednesday or Wednesday.
[2018-02-19] MEDS ORDERED: DEXAMETHASONE INJ 6 MG in SYRINGE 0 ML IV ONE (11:00)
[2018-02-19] MEDS ORDERED: NURSING VERBAL MED ORDER ONE (11:15)
--- NOTE | 2018-02-19 17:00 | Progress Note ---
Medicine Progress Note Date & Time of Visit: Feb 19, 2018 at 17:00. Subjective patient seen resting in bedside chair, comfortable states she feels fine overall pain well controlled denies chest pain, dyspnea, palpitations, dizziness no other symptoms Objective Last 8 Hrs Date Time Temp Pulse Resp B/P (MAP) Pulse Ox O2 Delivery O2 Flow Rate FiO2 02/19/18 15:30 Room Air 02/19/18 14:45 36.5 66 17 142/64 (90) 94 Room Air 02/19/18 11:30 36.6 78 20 101/62 (75) 98 Room Air Physical Exam: General- oriented x 3, not in distress, speaks in sentences Head- atraumatic Eyes- anicteric ENT- oropharynx clear Neck- supple, no JVD Lungs- clear to auscultation bilaterally Heart- regular rhythm; no murmur, normal rate Abdomen- normal bowel sounds, soft, nontender Extremities- no pretibial edema, no calf tenderness Neuro- alert, oriented x 3; clear breath sounds bilaterally Skin- warm & dry Laboratory Results: Last 24 Hours Test 02/19/18 06:35 White Blood Count 11.59 K/uL Red Blood Count 3.17 M/uL Hemoglobin 9.4 g/dL Hematocrit 28.7 % Mean Corpuscular Volume 90.5 fL Mean Corpuscular Hemoglobin 29.7 pg Mean Corpuscular Hemoglobin Concent 32.8 g/dl Platelet Count 223 K/uL Mean Platelet Volume 9.9 fL Neutrophils (%) (Auto) 72.9 % Lymphocytes (%) (Auto) 16.6 % Monocytes (%) (Auto) 9.9 % Eosinophils (%) (Auto) 0.2 % Basophils (%) (Auto) 0.1 % Neutrophils # (Auto) 8.46 K/uL Lymphocytes # (Auto) 1.92 K/uL Monocytes # (Auto) 1.15 K/uL Eosinophils # (Auto) 0.02 K/uL Basophils # (Auto) 0.01 K/uL RDW Standard Deviation 48.6 fL RDW Coefficient of Variation 14.7 % Immature Granulocyte % (Auto) 0.3 % Immature Granulocyte # (Auto) 0.03 K/uL Sodium Level 141 mmol/L Potassium Level 3.9 mmol/L Chloride Level 108 mmol/L Carbon Dioxide Level 26 mmol/L Anion Gap 7.0 mmol/L Blood Urea Nitrogen 18 mg/dl Creatinine 0.87 mg/dl Est Creatinine Clear Calc Drug Dose 53.4 ml/min Estimated GFR () 76.6 Estimated GFR (Non- 66.1 BUN/Creatinine Ratio 20.3 Random Glucose 91 mg/dl Calcium Level 8.2 mg/dl Assessment & Plan This is a 73yo F with a PMH of HTN, CAD (s/p CABG), asthma, GERD, lumbar stenosis with neurogenic claudication and other medical problems listed below who is POD #0 s/p L5-S1 decompression fusion and L3-L5 hardware removal by Dr. Walker. Lumbar stenosis s/p decompression fusion: -POD #1 s/p L3-L5 hardware removal and L5-S1 decompression fusion by Dr. Walker stable overall HTN -stable -Continue home dose Lopressor -Hold Lasix and losartan for now -monitor CAD (s/p CABG) -Stable -Continue baby aspirin, statin Asthma -Continue Advair inhaler GERD -Continue PPI ? Rheumatoid Arthritis -Recently started on Plaquenil by rheumatology -Unsure of diagnosis -Plaquenil held by ortho surgery Mood disorder -Continue SSRI Thank you for this consultation. We will follow the patient with you during their hospital stay. You can reach a member of the [facility] Hospitalist Team 18/01 via pager @ . Current Inpatient Medications: Current Inpatient Medications Medications (Trade) Dose Ordered Sig/Jonh Route Start Time Stop Time Status Last Admin Dose Admin Promethazine HCl 12.5 mg/Sodium Chloride 50.5 ml @ 202 mls/hr Q6H PRN IV 02/18/18 15:45 03/20/18 15:44 Ondansetron HCl (Zofran Inj) 4 mg Q6H PRN IV 02/18/18 15:45 03/20/18 15:44 Metoclopramide HCl (Reglan Inj) 10 mg Q6H PRN IV 02/18/18 15:45 03/20/18 15:44 Lorazepam (Ativan Tab) 0.5 mg Q8H PRN PO 02/18/18 15:45 03/20/18 15:44 Lorazepam 0.5 mg/ Syringe 1 ml @ 1 mls/min Q8H PRN IV 02/18/18 15:45 03/20/18 15:44 Pneumococcal Polysaccharide Vaccine 1 ea PRN PRN N/A 02/18/18 15:45 03/20/18 15:44 Influenza Virus Vacc Triv Types A&B 1 ea PRN PRN N/A 02/18/18 15:45 03/20/18 15:44 Polyethylene (Miralax Powder Packet) 17 gm Q6 PO 02/20/18 06:00 03/22/18 05:59 Bisacodyl (Dulcolax Supp) 10 mg DAILY PRN SC 02/18/18 15:45 03/20/18 15:44 Magnesium Hydroxide (Milk Of Magnesia Susp) 30 ml DAILY PRN PO 02/18/18 15:45 03/20/18 15:44 Hydromorphone HCl (Dilaudid Inj) 0.5-1mg prn moder... Q3H PRN IV 02/18/18 15:45 03/04/18 15:44 Acetaminophen (Tylenol Tab) 1,000 mg Q8H PRN PO 02/18/18 15:45 03/20/18 15:44 Acetaminophen 100 ml @ 400 mls/hr Q8H PRN IV 02/18/18 15:45 03/20/18 15:44 Naloxone HCl (Narcan Inj) 0.1 mg Q5M PRN IV 02/18/18 15:45 03/20/18 15:44 Senna/Docusate Sodium (Senokot S Tab) 2 tab HS PO 02/18/18 21:00 03/20/18 20:59 02/18/18 21:33 2 TAB Sodium Biphosphate/ Sodium Phosphate (Fleet Enema) 132 ml ONE PRN SC 02/18/18 15:45 03/20/18 15:44 Hydroxyzine HCl (Vistaril Tab) 25 mg Q8H PRN PO 02/18/18 15:45 03/20/18 15:44 Al Hydroxide/Mg Hydroxide (Maalox Susp) 30 ml Q6H PRN PO 02/18/18 15:45 03/20/18 15:44 Famotidine (Pepcid Tab) 20 mg Q12 PRN PO 02/18/18 15:45 03/20/18 15:44 Diphenhydramine HCl (Benadryl Cap) 25 mg Q6H PRN PO 02/18/18 15:45 03/20/18 15:44 Aspirin (Ecotrin Tab) 81 mg QAM PO 02/19/18 09:00 03/21/18 08:59 02/19/18 09:14 81 MG Citalopram Hydrobromide (celeXA TAB) 20 mg HS PO 02/18/18 21:00 03/20/18 20:59 02/18/18 21:34 20 MG Salmeterol Xinafoate/ Fluticasone (Advair Diskus 250/50 Inh) 1 puff QAM INH 02/19/18 09:00 03/21/18 08:59 02/19/18 09:13 1 PUFF Metoprolol Tartrate (Lopressor Tab) 25 mg QPM PO 02/18/18 21:00 03/20/18 20:59 02/18/18 21:33 25 MG Metoprolol Tartrate (Lopressor Tab) 12.5 mg QAM PO 02/19/18 09:00 03/21/18 08:59 02/19/18 09:15 12.5 MG Multivitamins (Multivitamin Tab) 1 tab PRN PO 02/18/18 15:45 03/20/18 15:44 Nitroglycerin (Nitrostat Tab) 0.4 mg UD PRN UT 02/18/18 15:45 03/20/18 15:44 Rosuvastatin Calcium (Crestor Tab) 5 mg HS PO 02/18/18 21:00 03/20/18 20:59 02/18/18 21:33 5 MG Pantoprazole Sodium (Protonix Tab) 40 mg QAM PO 02/19/18 09:00 03/21/18 08:59 02/19/18 09:14 40 MG Gabapentin (Neurontin Cap) 300 mg TID PO 02/18/18 21:00 03/20/18 20:59 02/19/18 13:52 300 MG
[2018-02-19] MEDS: ROSUVASTATIN CALCIUM 5 MG TAB PO SCH (20:46)
[2018-02-19] MEDS: CITALOPRAM 20 MG TAB PO SCH (20:46)
[2018-02-19] MEDS: DOCUSATE SODIUM/SENNA 50/8.6MG TAB PO SCH (20:46)
[2018-02-20] MEDS: DOCUSATE SODIUM/SENNA 50/8.6MG TAB PO SCH (05:09)
[2018-02-20] MEDS: POLYETHYLENE (MIRALAX) 17 GM PACK PO SCH ×3 (05:10→17:51)
[2018-02-20 07:06] VITALS: BP 127/65; PULSE 60; TEMP 36.7; O2SAT 97
--- NOTE | 2018-02-20 08:27 | Orthopedic Progress Note ---
Orthopedic Progress Note Date of Service Feb 20, 2018. Subjective Post OP Day: 2 Reports: feeling well Additional Notes: Doing much better today. Denies leg pain. Back pain is under better control. Walking the hallways with walker. + flatus. JOSE output last shift was 40cc. No other complaints Objective calves soft nontender, N/V intact, dressing C/D/I, A&O x3, toes mobile calves soft and nontender b/l. neurovascularly intact b/l Date Time Temp Pulse Resp B/P (MAP) Pulse Ox O2 Delivery O2 Flow Rate FiO2 02/20/18 07:06 36.7 60 16 127/65 (85) 97 Room Air 02/20/18 00:15 Room Air 02/19/18 23:09 36.8 63 14 126/68 (87) 96 Room Air 02/19/18 20:45 72 112/57 (75) 02/19/18 15:30 Room Air 02/19/18 14:45 36.5 66 17 142/64 (90) 94 Room Air 02/19/18 11:30 36.6 78 20 101/62 (75) 98 Room Air Assessment & Plan Assessment: POD 2 PSF lumbar spine Plan: Continue with pain control. Continue bowel regimen. PT. DVT prophylaxis is TEDS/ SCDS. Anticipate possible discharge home (with daughter) tomorrow. Maintain JOSE drain Inhouse Planning DVT Prophylaxis: TEDs, SCDs Discharge Planning Discharge Planning: home
[2018-02-20] MEDS: ASPIRIN 81 MG ECTAB PO SCH (09:06)
[2018-02-20] MEDS: GABAPENTIN 300 MG CAP PO SCH ×3 (09:06→20:50)
[2018-02-20] MEDS: FLUTICASONE/SALMETEROL 250/50 (ADVAIR) 14 PUFF/1 INHALER INH SCH (09:06)
[2018-02-20] MEDS: PANTOprazole SOD 40 MG TAB PO SCH (09:06)
[2018-02-20] MEDS: METOPROLOL TARTRATE 25 MG TAB PO SCH ×2 (09:07→20:50)
[2018-02-20 14:59] VITALS: BP 138/66; PULSE 73; TEMP 37.1; O2SAT 96
[2018-02-20] MEDS: ACETAMINOPHEN 500 MG TAB PO PRN (15:08)
--- NOTE | 2018-02-20 16:26 | Progress Note ---
Subjective Date of Service: Feb 20, 2018. Subjective Pt evaluation today including: conversation w/ patient, physical exam, lab review, review of studies, review of inpatient medication list Saw/examined the patient in room 319 Doing well, back pain improved, ambulating well No other issues to note Problem List Medical Problems: (1) Postoperative back pain Status: Acute Review of Systems Constitutional: No fever, No chills, No weakness Respiratory: No cough, No sputum, No shortness of breath Cardiac: No chest pain Abdomen: No pain, No nausea, No vomiting, No diarrhea Musculoskeletal: No joint pain Medications Current Inpatient Medications Medications (Trade) Dose Ordered Sig/Jonh Route Start Time Stop Time Status Last Admin Dose Admin Promethazine HCl 12.5 mg/Sodium Chloride 50.5 ml @ 202 mls/hr Q6H PRN IV 02/18/18 15:45 03/20/18 15:44 Ondansetron HCl (Zofran Inj) 4 mg Q6H PRN IV 02/18/18 15:45 03/20/18 15:44 Metoclopramide HCl (Reglan Inj) 10 mg Q6H PRN IV 02/18/18 15:45 03/20/18 15:44 Lorazepam (Ativan Tab) 0.5 mg Q8H PRN PO 02/18/18 15:45 03/20/18 15:44 Lorazepam 0.5 mg/ Syringe 1 ml @ 1 mls/min Q8H PRN IV 02/18/18 15:45 03/20/18 15:44 Pneumococcal Polysaccharide Vaccine 1 ea PRN PRN N/A 02/18/18 15:45 03/20/18 15:44 Influenza Virus Vacc Triv Types A&B 1 ea PRN PRN N/A 02/18/18 15:45 03/20/18 15:44 Polyethylene (Miralax Powder Packet) 17 gm Q6 PO 02/20/18 06:00 03/22/18 05:59 02/20/18 12:02 17 GM Bisacodyl (Dulcolax Supp) 10 mg DAILY PRN AK 02/18/18 15:45 03/20/18 15:44 Magnesium Hydroxide (Milk Of Magnesia Susp) 30 ml DAILY PRN PO 02/18/18 15:45 03/20/18 15:44 Hydromorphone HCl (Dilaudid Inj) 0.5-1mg prn moder... Q3H PRN IV 02/18/18 15:45 03/04/18 15:44 Acetaminophen (Tylenol Tab) 1,000 mg Q8H PRN PO 02/18/18 15:45 03/20/18 15:44 02/20/18 15:08 1,000 MG Acetaminophen 100 ml @ 400 mls/hr Q8H PRN IV 02/18/18 15:45 03/20/18 15:44 Naloxone HCl (Narcan Inj) 0.1 mg Q5M PRN IV 02/18/18 15:45 03/20/18 15:44 Senna/Docusate Sodium (Senokot S Tab) 2 tab HS PO 02/18/18 21:00 03/20/18 20:59 02/19/18 20:46 2 TAB Sodium Biphosphate/ Sodium Phosphate (Fleet Enema) 132 ml ONE PRN AK 02/18/18 15:45 03/20/18 15:44 Hydroxyzine HCl (Vistaril Tab) 25 mg Q8H PRN PO 02/18/18 15:45 03/20/18 15:44 Al Hydroxide/Mg Hydroxide (Maalox Susp) 30 ml Q6H PRN PO 02/18/18 15:45 03/20/18 15:44 Famotidine (Pepcid Tab) 20 mg Q12 PRN PO 02/18/18 15:45 03/20/18 15:44 Diphenhydramine HCl (Benadryl Cap) 25 mg Q6H PRN PO 02/18/18 15:45 03/20/18 15:44 Aspirin (Ecotrin Tab) 81 mg QAM PO 02/19/18 09:00 03/21/18 08:59 02/20/18 09:06 81 MG Citalopram Hydrobromide (celeXA TAB) 20 mg HS PO 02/18/18 21:00 03/20/18 20:59 02/19/18 20:46 20 MG Salmeterol Xinafoate/ Fluticasone (Advair Diskus 250/50 Inh) 1 puff QAM INH 02/19/18 09:00 03/21/18 08:59 02/20/18 09:06 1 PUFF Metoprolol Tartrate (Lopressor Tab) 25 mg QPM PO 02/18/18 21:00 03/20/18 20:59 02/19/18 20:45 25 MG Metoprolol Tartrate (Lopressor Tab) 12.5 mg QAM PO 02/19/18 09:00 03/21/18 08:59 02/20/18 09:07 12.5 MG Multivitamins (Multivitamin Tab) 1 tab PRN PO 02/18/18 15:45 03/20/18 15:44 Nitroglycerin (Nitrostat Tab) 0.4 mg UD PRN UT 02/18/18 15:45 03/20/18 15:44 Rosuvastatin Calcium (Crestor Tab) 5 mg HS PO 02/18/18 21:00 03/20/18 20:59 02/19/18 20:46 5 MG Pantoprazole Sodium (Protonix Tab) 40 mg QAM PO 02/19/18 09:00 03/21/18 08:59 02/20/18 09:06 40 MG Gabapentin (Neurontin Cap) 300 mg TID PO 02/18/18 21:00 03/20/18 20:59 02/20/18 13:45 300 MG Objective Vital Signs Date Time Temp Pulse Resp B/P (MAP) Pulse Ox O2 Delivery O2 Flow Rate FiO2 02/20/18 15:42 Room Air 02/20/18 14:59 37.1 73 16 138/66 (90) 96 Room Air 02/20/18 13:00 Room Air 02/20/18 08:00 Room Air 02/20/18 07:06 36.7 60 16 127/65 (85) 97 Room Air 02/20/18 00:15 Room Air 02/19/18 23:09 36.8 63 14 126/68 (87) 96 Room Air 02/19/18 20:45 72 112/57 (75) Physical Exam General Appearance: no apparent distress Respiratory/Chest: chest non-tender, lungs clear, normal breath sounds, no respiratory distress, no accessory muscle use Cardiovascular: regular rate, rhythm, no edema, no murmur Abdomen: normal bowel sounds, non tender, soft Extremities: + pertinent finding (+JOSE drain) Neurologic/Psychiatric: no motor/sensory deficits, alert, normal mood/affect Assessment and Plan This is a 73 year old female with a past medical history of CAD s/p CABG, Asthma , GERD, HTN, RA on long-term Plaquenil - presented for lumbar surgery Lumbar Stenosis s/p Decompression/Fusion - POD #2, s/p L5-S1 decompression/fusion - doing well, continue PT/OT - continue pain medications PRN HTN - BP stable - holding Lasix - restart Cozaar CAD (s/p CABG) - continue aspirin, statin, b-amber Asthma - Continue Advair inhaler GERD - Continue PPI Rheumatoid Arthritis - outpatient rheumatology - continue Plaquenil Mood disorder - Continue SSRI DVT ppx - as per ortho FULL CODE
[2018-02-20] MEDS: ROSUVASTATIN CALCIUM 5 MG TAB PO SCH (20:50)
[2018-02-20] MEDS: CITALOPRAM 20 MG TAB PO SCH (20:50)
[2018-02-20 23:35] VITALS: BP 145/62; PULSE 75; TEMP 36.8; O2SAT 97
[2018-02-20] MEDS ORDERED: NURSING VERBAL MED ORDER ONE (23:45)
[2018-02-21 06:33] VITALS: BP 116/65; PULSE 69; TEMP 36.8; O2SAT 95
[2018-02-21 07:00] LABS: HEMATOCRIT 26.9 % (37-47); HEMOGLOBIN 8.7 g/dL (12.0-16.0); MEAN CORPUSCULAR HEMOGLOBIN 29.1 pg (25-34); MEAN CORPUSCULAR HGB CONC 32.3 g/dl (32-36); PLATELET COUNT 211 K/uL (130-400); RED CELL DISTRIBUTION WIDTH CV 15.3 % (11.5-14.5); RED CELL DISTRIBUTION WIDTH SD 50.6 fL (36.4-46.3); WHITE BLOOD COUNT 8.55 K/uL (4.8-10.8)
--- NOTE | 2018-02-21 07:21 | Clinical Documentation Query ---
SAADIA Forte : CLINICAL DOCUMENTATION QUERY Patient is a 73 year old female admitted for treatment of lumbar spinal stenosis with degenerative scoliosis and neurogenic claudication. As appropriate, please explicitly state whether the scoliosis was addressed/corrected and/or made the operative procedures technically more difficult/time intensive due to the location of scoliosis. In your clinical opinion is this patient being managed for: ( x ) Repair/Correction of lumbar (lumbosacral) scoliosis ( ) Not Agree ( ) Other explanation of clinical findings (No explanation is considered a No Response) ( ) Unable to determine ( ) Need to Discuss (Phone CDS or qliq) (No discussion is considered a No Response) The medical record reflects the following clinical findings, treatment, and risk factors. Clinical Indicators: As above Treatment: Operative repair Risk Factors: Age, degenerative arthritis Please clarify and document your clinical opinion in the progress notes and discharge summary. Terms such as "probable", "suspected", "likely", "questionable", "possible", or "still to be ruled out" are acceptable. IF IN AGREEMENT, YOU MUST DOCUMENT ABOVE DIAGNOSTIC STATEMENT IN DAILY PROGRESS NOTES AND DISCHARGE SUMMARY. This document is not part of the patient's record. Thank You, Albert Hall, RN [phone]
[2018-02-21 07:35] LABS: CALCIUM 7.9 mg/dl (8.5-10.1); CREATININE 0.84 mg/dl (0.60-1.20); POTASSIUM 3.9 mmol/L (3.5-5.1)
[2018-02-21] MEDS: FLUTICASONE/SALMETEROL 250/50 (ADVAIR) 14 PUFF/1 INHALER INH SCH (07:55)
[2018-02-21] MEDS: METOPROLOL TARTRATE 25 MG TAB PO SCH ×2 (07:56→20:07)
[2018-02-21] MEDS: ASPIRIN 81 MG ECTAB PO SCH (07:56)
[2018-02-21] MEDS: PANTOprazole SOD 40 MG TAB PO SCH (07:57)
[2018-02-21] MEDS: GABAPENTIN 300 MG CAP PO SCH ×3 (07:57→20:08)
[2018-02-21] MEDS: LOSARTAN POTASSIUM 50 MG TAB PO SCH (08:47)
--- NOTE | 2018-02-21 09:16 | Progress Note ---
Progress Note Date of Service Feb 21, 2018. Progress Note Patient's complaining of some right upper thigh pain. This began today while sitting in a chair. Left lower extremity is asymptomatic. Back pain is well controlled. On exam she is sitting up at the bedside. She is good strength testing. Assessment status post lumbar decompression fusion per plan at this time will appreciate that she is very sensitive to medications. She is tolerating intermittent doses of IV Dilaudid. I will give her 1 dose of Decadron today. He will undergo therapy as tolerated. We will have her assess for possible candidacy for [facility] later this week.
[2018-02-21] MEDS ORDERED: DEXAMETHASONE INJ 6 MG in SYRINGE 0 ML IV STA (09:19)
--- NOTE | 2018-02-21 10:06 | DIAGNOSTIC IMAGING REPORT ---
LUMBAR SPINE 2 OR 3 VIEWS CLINICAL HISTORY: post op standing postoperative evaluation COMPARISON STUDY: No previous studies for comparison. FINDINGS: Findings consistent with lumbar laminectomy and fusion. Scoliosis of the lumbar spine. interpedicular screws are noted at L5-S1 and L2-L3. Posterior catheter is present. Bowel pattern suggests nonobstructive ileus. IMPRESSION: Postoperative changes of the lumbar spine as noted. Scoliosis of the thoracolumbar spine. Drainage catheter in good position. Nonobstructive colonic ileus. The above report was generated using voice recognition software. It may contain grammatical, syntax or spelling errors. Electronically signed by: Justin Downs M.D. 02/21/2018 10:04 AM Dictated Date/Time: 02/21/2018 10:03 AM
--- NOTE | 2018-02-21 10:38 | Clinical Documentation Query ---
VEE Randle : CLINICAL DOCUMENTATION QUERY Patient is a 73 year old female who on 02/18 underwent L5-S1 decompression fusion and L3-L5 hardware removal by Dr. Walker. H&H this a.m. (02/21) is 8.7 g/dl and 26.9%. EBL for total blood loss to date of 1,025 ml's. Of note, prior to initial spinal fusion in 2016, patients H&H was 13.1 g/dl and 40.4%. As appropriate, consider documentation of these findings as suggested below. Thank you. In your clinical opinion is this patient being managed for: ( ) Acute blood loss anemia ( ) Not Agree ( ) Other explanation of clinical findings (No explanation is considered a No Response) ( ) Unable to determine ( ) Need to Discuss (Phone CDS or qliq) (No discussion is considered a No Response) The medical record reflects the following clinical findings, treatment, and risk factors. Clinical Indicators: As above Treatment: Serial hematology, I/O, drain outputs. Risk Factors: Acute perioperative losses. Please clarify and document your clinical opinion in the progress notes and discharge summary. Terms such as "probable", "suspected", "likely", "questionable", "possible", or "still to be ruled out" are acceptable. IF IN AGREEMENT, YOU MUST DOCUMENT ABOVE DIAGNOSTIC STATEMENT IN DAILY PROGRESS NOTES AND DISCHARGE SUMMARY. This document is not part of the patient's record. Thank You, Albert Hall, RN [phone]
--- NOTE | 2018-02-21 11:23 | Progress Note ---
Subjective Date of Service: Feb 21, 2018. Subjective Pt evaluation today including: conversation w/ patient, physical exam, lab review, review of studies, review of inpatient medication list Saw/examined the patient in room 319 C/o R LE pain/thigh pain Also c/o cervical neck tenderness Was given Dilaudid and Decadron earlier today and states she feels much better now Has had a bowel movement Good PO intake Problem List Medical Problems: (1) Postoperative back pain Status: Acute Review of Systems Respiratory: No shortness of breath Cardiac: No chest pain Abdomen: No pain, No nausea, No vomiting, No diarrhea, No constipation, No GI bleeding Musculoskeletal: + joint pain Medications Current Inpatient Medications Medications (Trade) Dose Ordered Sig/Jonh Route Start Time Stop Time Status Last Admin Dose Admin Promethazine HCl 12.5 mg/Sodium Chloride 50.5 ml @ 202 mls/hr Q6H PRN IV 02/18/18 15:45 03/20/18 15:44 Ondansetron HCl (Zofran Inj) 4 mg Q6H PRN IV 02/18/18 15:45 03/20/18 15:44 Metoclopramide HCl (Reglan Inj) 10 mg Q6H PRN IV 02/18/18 15:45 03/20/18 15:44 Lorazepam (Ativan Tab) 0.5 mg Q8H PRN PO 02/18/18 15:45 03/20/18 15:44 Lorazepam 0.5 mg/ Syringe 1 ml @ 1 mls/min Q8H PRN IV 02/18/18 15:45 03/20/18 15:44 Pneumococcal Polysaccharide Vaccine 1 ea PRN PRN N/A 02/18/18 15:45 03/20/18 15:44 Influenza Virus Vacc Triv Types A&B 1 ea PRN PRN N/A 02/18/18 15:45 03/20/18 15:44 Bisacodyl (Dulcolax Supp) 10 mg DAILY PRN ND 02/18/18 15:45 03/20/18 15:44 Magnesium Hydroxide (Milk Of Magnesia Susp) 30 ml DAILY PRN PO 02/18/18 15:45 03/20/18 15:44 Hydromorphone HCl (Dilaudid Inj) 0.5-1mg prn moder... Q3H PRN IV 02/18/18 15:45 03/04/18 15:44 02/21/18 08:03 0.5 MG Acetaminophen (Tylenol Tab) 1,000 mg Q8H PRN PO 02/18/18 15:45 03/20/18 15:44 02/20/18 15:08 1,000 MG Acetaminophen 100 ml @ 400 mls/hr Q8H PRN IV 02/18/18 15:45 03/20/18 15:44 Naloxone HCl (Narcan Inj) 0.1 mg Q5M PRN IV 02/18/18 15:45 03/20/18 15:44 Senna/Docusate Sodium (Senokot S Tab) 2 tab HS PO 02/18/18 21:00 03/20/18 20:59 02/19/18 20:46 2 TAB Sodium Biphosphate/ Sodium Phosphate (Fleet Enema) 132 ml ONE PRN ND 02/18/18 15:45 03/20/18 15:44 Hydroxyzine HCl (Vistaril Tab) 25 mg Q8H PRN PO 02/18/18 15:45 03/20/18 15:44 Al Hydroxide/Mg Hydroxide (Maalox Susp) 30 ml Q6H PRN PO 02/18/18 15:45 03/20/18 15:44 Famotidine (Pepcid Tab) 20 mg Q12 PRN PO 02/18/18 15:45 03/20/18 15:44 Diphenhydramine HCl (Benadryl Cap) 25 mg Q6H PRN PO 02/18/18 15:45 03/20/18 15:44 Aspirin (Ecotrin Tab) 81 mg QAM PO 02/19/18 09:00 03/21/18 08:59 02/21/18 07:56 81 MG Citalopram Hydrobromide (celeXA TAB) 20 mg HS PO 02/18/18 21:00 03/20/18 20:59 02/20/18 20:50 20 MG Salmeterol Xinafoate/ Fluticasone (Advair Diskus 250/50 Inh) 1 puff QAM INH 02/19/18 09:00 03/21/18 08:59 02/21/18 07:55 1 PUFF Metoprolol Tartrate (Lopressor Tab) 25 mg QPM PO 02/18/18 21:00 03/20/18 20:59 02/20/18 20:50 25 MG Metoprolol Tartrate (Lopressor Tab) 12.5 mg QAM PO 02/19/18 09:00 03/21/18 08:59 02/21/18 07:56 12.5 MG Multivitamins (Multivitamin Tab) 1 tab PRN PO 02/18/18 15:45 03/20/18 15:44 Nitroglycerin (Nitrostat Tab) 0.4 mg UD PRN UT 02/18/18 15:45 03/20/18 15:44 Rosuvastatin Calcium (Crestor Tab) 5 mg HS PO 02/18/18 21:00 03/20/18 20:59 02/20/18 20:50 5 MG Pantoprazole Sodium (Protonix Tab) 40 mg QAM PO 02/19/18 09:00 03/21/18 08:59 02/21/18 07:57 40 MG Gabapentin (Neurontin Cap) 300 mg TID PO 02/18/18 21:00 03/20/18 20:59 02/21/18 07:57 300 MG Losartan Potassium (coZAAR TAB) 50 mg QAM PO 02/21/18 09:00 03/23/18 08:59 02/21/18 08:47 50 MG Objective Vital Signs Date Time Temp Pulse Resp B/P (MAP) Pulse Ox O2 Delivery O2 Flow Rate FiO2 02/21/18 07:27 Room Air 02/21/18 06:33 36.8 69 18 116/65 (82) 95 Room Air 02/20/18 23:40 Room Air 02/20/18 23:35 36.8 75 17 145/62 (89) 97 Room Air 02/20/18 15:42 Room Air 02/20/18 14:59 37.1 73 16 138/66 (90) 96 Room Air 02/20/18 13:00 Room Air Physical Exam General Appearance: no apparent distress Respiratory/Chest: no respiratory distress, no accessory muscle use Cardiovascular: regular rate, rhythm, no edema, no murmur Neurologic/Psychiatric: no motor/sensory deficits, alert, normal mood/affect Laboratory Results Last 24 Hours Test 02/21/18 06:51 White Blood Count 8.55 K/uL Red Blood Count 2.99 M/uL Hemoglobin 8.7 g/dL Hematocrit 26.9 % Mean Corpuscular Volume 90.0 fL Mean Corpuscular Hemoglobin 29.1 pg Mean Corpuscular Hemoglobin Concent 32.3 g/dl RDW Standard Deviation 50.6 fL RDW Coefficient of Variation 15.3 % Platelet Count 211 K/uL Mean Platelet Volume 10.0 fL Sodium Level 142 mmol/L Potassium Level 3.9 mmol/L Chloride Level 109 mmol/L Carbon Dioxide Level 26 mmol/L Anion Gap 7.0 mmol/L Blood Urea Nitrogen 20 mg/dl Creatinine 0.84 mg/dl Est Creatinine Clear Calc Drug Dose 55.3 ml/min Estimated GFR () 79.9 Estimated GFR (Non- 69.0 BUN/Creatinine Ratio 23.7 Random Glucose 93 mg/dl Calcium Level 7.9 mg/dl Magnesium Level 2.2 mg/dl Assessment and Plan This is a 73 year old female with a past medical history of CAD s/p CABG, Asthma , GERD, HTN, RA on long-term Plaquenil - presented for lumbar surgery Lumbar Stenosis s/p Decompression/Fusion 02/21 - was given IV Dilaudid and IV Decadron earlier - repeat x-ray of the lumbar spine, no new changes - continue PT/OT - [facility] - expected acute blood loss anemia 02/20 - POD #2, s/p L5-S1 decompression/fusion - doing well, continue PT/OT - continue pain medications PRN HTN - BP stable - holding Lasix - restart Cozaar CAD (s/p CABG) - continue aspirin, statin, b-amber Asthma - Continue Advair inhaler GERD - Continue PPI Rheumatoid Arthritis - outpatient rheumatology - continue Plaquenil Mood disorder - Continue SSRI DVT ppx - as per ortho FULL CODE
[2018-02-21 14:58] VITALS: BP 108/66; PULSE 75; TEMP 36.7; O2SAT 93
[2018-02-21 20:06] VITALS: BP 119/71; PULSE 70
[2018-02-21] MEDS: ROSUVASTATIN CALCIUM 5 MG TAB PO SCH (20:08)
[2018-02-21] MEDS: CITALOPRAM 20 MG TAB PO SCH (20:08)
[2018-02-21] MEDS: DOCUSATE SODIUM/SENNA 50/8.6MG TAB PO SCH (20:08)
[2018-02-21 23:16] VITALS: BP 137/68; PULSE 66; TEMP 36.8; O2SAT 98
[2018-02-22 07:40] VITALS: BP 132/73; PULSE 71; TEMP 36.6; O2SAT 96
--- NOTE | 2018-02-22 09:06 | Discharge Instructions ---
Discharge Instructions Date of Service Feb 22, 2018. Admission Reason for Admission: Lumbar Spinal Stenosis Discharge Discharge Diagnosis / Problem: lumbar stenosis Discharge Goals Goal(s): Improve function Activity Recommendations Activity Limitations: per Instructions/Follow-up section . Instructions / Follow-Up Instructions / Follow-Up ACTIVITY RECOMMENDATIONS: SELF CARE INSTRUCTIONS AFTER THORACIC/LUMBAR FUSIONS 1. You may walk to your tolerance. It is good exercise for your legs and back. Expect some back and intermittent leg aches and pains. 2. You may perform "counter-top" level activities (make a sandwich, bryon with a project, etc.). 3. No bending or lifting of more than 10 pounds or back twisting of any nature (roll like a log when turning in bed). 4. You may ride in a car for 20-30 minutes at a time. No driving until after your first visit with your doctor. 5. Frequent changes of position and restricting sitting to 30 minutes at a time will help limit the amount of back spasms and stiffness you may experience. 6. You may discontinue the use of ambulatory aids (cane, crutches, etc.) once your strength and confidence allow. 7. You may clinical operations leader the shower and let water strike your incision when you arrive home at least once daily. Do not take a tub bath, sit in a hot tub or go into a swimming pool until after your first recheck in the office. SPECIAL CARE INSTRUCTIONS: VERY IMPORTANT TO READ AND REVIEW A. Your surgical incision has been closed with a cosmetic suture under the skin that will dissolve in about 6 weeks. In 14 days, you can use a pair of clean scissors and cut the suture that is left outside of the skin at the ends of your incision. 1. The small skin tapes can be removed 7 days after surgery if they have not fallen off by that point. 2. You may keep the wound open to air as much as possible to promote healing after post-op day number 5 unless told otherwise by your doctor. 3. If you think the wound looks like it is becoming infected (redness or worsening drainage) and/or you are experiencing fever, chill or worsening back pain and muscle spasms, contact the office so that we may evaluate you as soon as possible. B. Complications are uncommon, but please contact us if you have any signs or symptoms of: 1. wound infection (fever higher than 102.5 degrees F, redness, separation of wound, drainage, or increasing pain from the incision) 2. blood clots in legs (pain, swelling, redness and warmth in legs) 3. urinary tract infection (fever higher than 102.5 degrees F, burning upon urination or increased frequency of urination) 4. nerve problems (inability to walk on your toes or heels, numbness, loss of bowel or bladder control) 5. any other symptoms that concern you C. Please call the office at if you have any concerns or questions about your operation or recovery. D. No smoking! Smoking drastically decreases the chance of a solid fusion. E. Do not take any anti-inflammatory medications (Indocin, Advil, Motrin, Aspirin, Naprosyn, etc.) as these may inhibit the chance of a solid fusion. Tylenol is okay to take for pain. MANAGING PAIN AFTER SPINAL SURGERY 1. Narcotic medication is intended for short-term use and will be provided for surgical pain. Surgical pain usually lasts for a period of 4-6 weeks. Narcotic medication includes Percocet, Vicodin, Darvocet, Tylenol #3 or Lortab. 2. Longer-term pain is more appropriately treated with non-narcotic medication such as Tylenol ES. 3. Muscle spasm is not appropriately treated with narcotics. Muscle relaxers such as Soma, Flexeril or Skelaxin can be used along with Tylenol ES. 4. Remember that we all live with some "aches and pains". This is not unusual or uncommon after an injury or as we get older. a. Back pain is expected and may include muscle spasms for 4 to 6 weeks after surgery. The pain should gradually improve. If the pain worsens for no apparent reason, please contact the office. b. Intermittent leg pain may also be experienced and should not be concerned about unless it worsens for no apparent reason. If so, please contact the office. 5. We will provide appropriate medication within the normal guidelines of their prescribed use. We will also be very cautious and aware of potential abuse and extended duration of patients' medication needs. a. Pain medications are for your comfort and to assist with sleep and rest so that the tissue can heal. They are not provided in order to return to normal activity and should not be used through the day. To do so or worsening pain at night can result from ongoing tissue damage and development of tolerance to the prescribed medicine. 6. Please allow 2-3 days to process refills. Prescriptions will not be mailed but must be picked up at the office. FOLLOW UP VISIT: Keep your scheduled follow-up appointment. Any questions, please call the office at . Current Hospital Diet Patient's current hospital diet: Regular Diet Discharge Diet Recommended Diet: Regular Diet Procedures Procedures Performed: 1. Removal of posterior instrumentation L3-4 L4-5. #2 exploration of fusion L3-4 L4-5 #3 revision decompression medial facetectomies foraminotomies L5-S1. #4 posterior spinal fusion L2-S1. #5 placement posterior segmental instrumentation L2-S1. #6 interbody fusion L5-S1. #7 placement peek cage 9 x 22 mm at L5-S1. #8 placement of local autograft in the posterior lateral gutters. #9 placement of infuse collagen sponge, Nast graft in the posterior gutters and ostial amp interbody space. Pending Studies Studies pending at discharge: no Medical Emergencies . Who to Call and When: Medical Emergencies: If at any time you feel your situation is an emergency, please call 911 immediately. . Non-Emergent Contact Non-Emergency issues call your: Primary Care Provider . "Provider Documentation" section prepared by Moe Walker. .
[2018-02-22 09:28] VITALS: BP 122/75; PULSE 92
[2018-02-22] MEDS: METOPROLOL TARTRATE 25 MG TAB PO SCH (09:30)
[2018-02-22] MEDS: ASPIRIN 81 MG ECTAB PO SCH (09:30)
[2018-02-22] MEDS: GABAPENTIN 300 MG CAP PO SCH ×2 (09:31→13:37)
[2018-02-22] MEDS: PANTOprazole SOD 40 MG TAB PO SCH (09:31)
[2018-02-22] MEDS: LOSARTAN POTASSIUM 50 MG TAB PO SCH (09:32)
[2018-02-22] MEDS: FLUTICASONE/SALMETEROL 250/50 (ADVAIR) 14 PUFF/1 INHALER INH SCH (09:37)
[2018-02-22] MEDS: ACETAMINOPHEN 500 MG TAB PO PRN (09:38)
[2018-02-22] MEDS ORDERED: DEXAMETHASONE INJ 6 MG in SYRINGE 0 ML IV ONE (12:00)
--- NOTE | 2018-02-22 12:07 | Discharge Summary ---
Orthopedic Discharge Summary Admission Date/Reason Feb 18, 2018 at 15:49 Lumbar Spinal Stenosis. Discharge Date/Disposition Feb 22, 2018 Rehab Diagnosis Principal Diagnosis: Lumbar spinal stenosis Admission Physical Exam As per Admitting History & Physical. Hospital Course Patient underwent multilevel lumbar decompression and fusion tolerated this well was taken to the orthopedic for postoperative. Postop day #1 her leg symptoms are markedly improved. She is ambulate well. She progressed throughout the weekend. Subsequently discharge to rehab. Discharge orders and instructions can be found in the chart for further review. Discharge Instructions Please refer to the electronic Patient Visit Report (Discharge Instructions) for additional information.
[2018-02-22 14:11] VITALS: BP 122/75; PULSE 92; TEMP 36.6; O2SAT 96
== END 2018-02-22 14:50 | DRG 455 ==
LOC: C.ACU 09:18 → C.3E 15:49 → ENRESERV 17:11
PROVIDERS: ADMIT Orthopaedic Surgery Orthopaedic Surgery of the Spine; ATTEND Orthopaedic Surgery Orthopaedic Surgery of the Spine
PROC: 0SG1071 Fusion of 2 or more Lumbar Vertebral Joints with Autologous Tissue Substitute, Posterior Approach, Posterior Column, Open Approach (ICD-10-PCS; principal; 2018-02-18 12:15)
PROC: 0QP004Z Removal of Internal Fixation Device from Lumbar Vertebra, Open Approach (ICD-10-PCS; principal; 2018-02-18 12:15)
PROC: 0SG30AJ Fusion of Lumbosacral Joint with Interbody Fusion Device, Posterior Approach, Anterior Column, Open Approach (ICD-10-PCS; principal; 2018-02-18 12:15)
PROC: 0SG3071 Fusion of Lumbosacral Joint with Autologous Tissue Substitute, Posterior Approach, Posterior Column, Open Approach (ICD-10-PCS; principal; 2018-02-18 12:15)
PROC: 3E0U0GB Introduction of Recombinant Bone Morphogenetic Protein into Joints, Open Approach (ICD-10-PCS; principal; 2018-02-18 12:15)
DX: M48.062 Spinal stenosis, lumbar region with neurogenic claudication (principal); M41.86 Other forms of scoliosis, lumbar region; I25.10 Atherosclerotic heart disease of native coronary artery without angina pectoris; K21.9 Gastro-esophageal reflux disease without esophagitis; J45.909 Unspecified asthma, uncomplicated; I10 Essential (primary) hypertension; Z95.1 Presence of aortocoronary bypass graft; Z88.5 Allergy status to narcotic agent; F39 Unspecified mood [affective] disorder; Z83.3 Family history of diabetes mellitus

== ENCOUNTER 2023-11-24 08:36 | Inpatient (IN) ==
--- NOTE | 2023-11-23 08:22 | Anesthesiology Consultation ---
Date of Service November 23, 2023 Assessment & Plan (1) Encounter for pre-operative examination: Plan - medical pre-op notation 11/19/23: "...low to moderate risk..." - PAT city secretary advised cardiology records were requested [address] Berman's office without response. I spoke with their office who confirmed fax number and that they would fax records, however no records were received. Case discussed in detail with Dr. aGuthier who advised patient can proceed with surgery as planned tomorrow. - Per producer assistant on 11/17/23: No known infectious disease contacts, current infectious disease symptoms in past 10 days or COVID positive test result in the past 30 days. Chart Review Chart Review: Acceptable Risk for Surgery and Patient NOT seen in Pre Admission Testing History Surgery Operation Date: 11/24/23 10:25 Proposed Procedures p Medicrea Hardware Removal - Moe Walker DO Height/Weight Height: 5 ft Weight: 49.895 kg Allergies Allergy/AdvReac Type Severity Reaction Status Date / Time hydrocodone Allergy Unknown SEVERE Verified 11/24/23 09:18 NAUSEA VOMITING, Hallucinations oxycodone Allergy Unknown SEVERE Verified 11/24/23 09:18 NAUSEA AND VOMITNG Medications Home Medications Medication Instructions Recorded Confirmed Last Taken acetaminophen 500 mg tablet 1,000 mg PO Q6H PRN Pain 11/17/23 11/24/23 11/21/23 aspirin 81 mg capsule 81 mg PO QAM 11/17/23 11/24/23 11/24/23 06:30 carbidopa ER 25 mg-levodopa 100 mg 1 tab PO TID 11/17/23 11/24/23 11/24/23 06:30 tablet,extended release duloxetine 30 mg capsule,delayed 30 mg PO HS 11/17/23 11/24/23 11/23/23 08:00 release (Cymbalta) fluticasone 250 mcg-salmeterol 50 1 inh inhalation 11/17/23 11/24/23 11/23/23 20:00 mcg/dose blistr powdr for inhalation (Advair Diskus) furosemide 40 mg tablet 40 mg PO QAM 11/17/23 11/24/23 11/23/23 08:00 gabapentin 300 mg capsule 300 mg PO TID 11/17/23 11/24/23 11/24/23 06:00 losartan 50 mg tablet 50 mg PO QAM 11/17/23 11/24/23 11/24/23 06:00 metoprolol tartrate 25 mg tablet 12.5 - 25 mg PO UD 11/17/23 11/24/23 11/24/23 06:00 montelukast 10 mg tablet 10 mg PO HS 11/17/23 11/24/23 11/23/23 20:00 nitroglycerin 0.4 mg sublingual 0.4 mg sublingual UD PRN Chest Pain 11/17/23 11/24/23 Unknown tablet omeprazole 20 mg tablet,delayed 20 mg PO QAM 11/17/23 11/24/23 11/24/23 06:00 release rosuvastatin 5 mg tablet (Crestor) 5 mg PO 11/17/23 11/24/23 11/23/23 20:00 Active Medications Generic Name Dose Route Start Last Admin Trade Name Freq PRN Reason Stop Dose Admin Acetaminophen 1,000 mg 11/24/23 06:00 11/24/23 09:42 Acetaminophen 500 Mg Tab PO 11/24/23 18:00 1,000 mg PREOP DEONNA Administration Celecoxib 200 mg 11/24/23 06:00 11/24/23 09:42 Celebrex 200 Mg Cap PO 11/24/23 18:00 200 mg PREOP DEONNA Administration Gabapentin 300 mg 11/24/23 06:00 11/24/23 09:42 Gabapentin 300 Mg Cap PO 11/24/23 18:00 Not Given PREOP DOENNA Lactated Ringer's 1,000 mls @ 15 mls/hr 11/24/23 06:00 11/24/23 09:42 Lr IV 11/25/23 05:59 15 mls/hr .Q24H DEONNA Administration Lactated Ringer's 1,000 mls @ 60 mls/hr 11/24/23 06:00 11/24/23 09:42 Lr IV 11/24/23 22:39 Not Given .[id number] [facility] Past Medical History Medical History (Updated 11/24/23 @ 10:47 by Moe Walker DO) Hypertension Asthma daily inh Arthritis CAD (coronary artery disease) s/p CABG x 2 2002 Depression High cholesterol Reflux gastritis Fusion of spine 06/08/17 L3-L5 D/F 01/2018 L5-S1 Decompression,[id number],Hardware Removal L-3-L-5 ~10 days after the 01/2018 sx, another procedure performed "due to intense pain" Past Surgical History Surgical History Hx of bilateral cataract extraction Hx of tonsillectomy History of revision of total shoulder arthroplasty 08/2023, right shoulder History of reverse total replacement of right shoulder joint 2019, UOC in [place] Hx of hernia repair History of colonoscopy History of total hysterectomy with bilateral salpingo-oophorectomy (BSO) Hx of CABG ~2002, 2 vessel, [facility]; f/u dr. berman, [place] Social History Smoking Status: Never smoker Do You Dip or Chew Tobacco: No Hx Alcohol Use: Yes (none in years) Hx Substance Use: No substance use type: does not use Physical Exam Vital Signs Last Vital Signs Temp 36.9 C 11/24/23 09:13 Pulse 78 11/24/23 09:13 Resp 20 11/24/23 09:13 BP 156/73 H 11/24/23 09:13 Pulse Ox 100 11/24/23 09:13 O2 Del Method Room Air 11/24/23 09:13 Lab Results Anesthesia Preop Results Results Anesthesia Widget: WBC 10.88 K/ul (4.8-10.8) H 11/17/23 Hgb 10.3 g/dl (12.0-16.0) L 11/17/23 Hct 33.8 % (37.0-47.0) L 11/17/23 Plt 463 K/uL (130-400) H 11/17/23 Na 138 mmol/L (136-145) 11/17/23 K 4.4 mmol/L (3.5-5.1) 11/17/23 Cl 102 mmol/L (98-107) 11/17/23 CO2 29 mmol/L (21-32) 11/17/23 BUN 30 mg/dl (6-23) H 11/17/23 Creat 0.76 mg/dl (0.6-1.2) 11/17/23 Glucose Level 96 mg/dl (70-99(Fasting)) 11/17/23 PT 10.8 Seconds (9.0-12.0) 11/17/23 INR 1.0 (0.9-1.1) 11/17/23 Urine Color Yellow 11/17/23 Urine Appearance Clear (Clear) 11/17/23 Urine pH 6.5 (4.5-7.5) 11/17/23 Urine Specific [place] 1.024 (1.000-1.030) 11/17/23 Urine Protein Trace (Negative) H 11/17/23 Urine Glucose (UA) Negative (Negative) 11/17/23 Urine Ketones Trace (Negative) H 11/17/23 Urine Blood Negative (Negative) 11/17/23 Urine Nitrite Negative (Negative) 11/17/23 Urine Bilirubin Negative (Negative) 11/17/23 Urine Urobilinogen Negative (Negative) 11/17/23 Urine Leukocyte Esterase 2+ (Negative) H 11/17/23 Urine WBC (Auto) >50 /hpf (0-5) H 11/17/23 Urine RBC (Auto) 3-5 /hpf (0-2) H 11/17/23 Urine Hyaline Casts (Auto) 0-2 /lpf (0-2) 11/17/23 Urine Epithelial Cells (Auto) 0-2 /hpf (0-2) 11/17/23 Urine Bacteria (Auto) None Seen (None Seen) 11/17/23 Blood Type A Positive 11/24/23 Antibody Screen NEGATIVE 11/24/23 Testing Laboratory Results Blood Type A Positive 11/24/23 09:04 Antibody Screen NEGATIVE 11/24/23 09:04 Chronic anemia to chart review. Electrocardiogram Date: 09/03/23 No available tracing-report is NSR Normal axis Nonspecific ST-T wave changes
[2023-11-24] MEDS: ACETAMINOPHEN 500 MG TAB PO SCH (09:42)
[2023-11-24] MEDS: LR 15ML/HR IV SCH (09:42)
[2023-11-24] MEDS: GABAPENTIN 300 MG CAP PO SCH ×2 (09:42→15:02)
[2023-11-24] MEDS: CeleBREX 200 MG CAP PO SCH (09:42)
[2023-11-24] MEDS: LR 60ML/HR IV SCH (09:42)
[2023-11-24] MEDS ORDERED: fentaNYL citrate PF 100 MCG/2 ML VIAL ONE (10:20)
--- NOTE | 2023-11-24 10:43 | History & Physical Bridge Note ---
Date of Service November 24, 2023 History & Physical Bridge Note I have examined the patient, reviewed the History & Physical and in the interval since the performance of the History & Physical I have noted the following changes of clinical significance: no changes noted
--- NOTE | 2023-11-24 10:48 | History & Physical Report ---
Date of Service November 24, 2023 Assessment & Plan (1) Sacral decubitus ulcer: Plan: Hardware removal lumbar spine History of Present Illness Chief Complaint: Back pain with sacral ulcer Primary Care Provider: Bg Flaherty MD This is a 78-year-old female known to me that presents with sacral ulcer on the left SI joint region. Hardware is exposed. Subsequently she is here for hardware removal so she can continue appropriate care of her decubiti.. Allergies Allergy/AdvReac Type Severity Reaction Status Date / Time hydrocodone Allergy Unknown SEVERE Verified 11/24/23 09:18 NAUSEA VOMITING, Hallucinations oxycodone Allergy Unknown SEVERE Verified 11/24/23 09:18 NAUSEA AND VOMITNG Home Medications Medication Instructions Recorded Confirmed Type acetaminophen 500 mg tablet 1,000 mg PO Q6H PRN Pain 11/17/23 11/24/23 History aspirin 81 mg capsule 81 mg PO QAM 11/17/23 11/24/23 History carbidopa ER 25 mg-levodopa 100 mg 1 tab PO TID 11/17/23 11/24/23 History tablet,extended release duloxetine 30 mg capsule,delayed 30 mg PO HS 11/17/23 11/24/23 History release (Cymbalta) fluticasone 250 mcg-salmeterol 50 1 inh inhalation HS 11/17/23 11/24/23 History mcg/dose blistr powdr for inhalation (Advair Diskus) furosemide 40 mg tablet 40 mg PO QAM 11/17/23 11/24/23 History gabapentin 300 mg capsule 300 mg PO TID 11/17/23 11/24/23 History losartan 50 mg tablet 50 mg PO QAM 11/17/23 11/24/23 History metoprolol tartrate 25 mg tablet 12.5 - 25 mg PO UD 11/17/23 11/24/23 History montelukast 10 mg tablet 10 mg PO HS 11/17/23 11/24/23 History nitroglycerin 0.4 mg sublingual 0.4 mg sublingual UD PRN Chest Pain 11/17/23 11/24/23 History tablet omeprazole 20 mg tablet,delayed 20 mg PO QAM 11/17/23 11/24/23 History release rosuvastatin 5 mg tablet (Crestor) 5 mg PO HS 11/17/23 11/24/23 History Past Med/Surg History Problem List (Updated 11/24/23 @ 10:47 by Moe Walker DO) Sacral decubitus ulcer Encounter for pre-operative examination Lumbar stenosis with neurogenic claudication (Chronic) H/O hernia repair (Chronic) H/O: hysterectomy (Chronic) S/P spinal surgery (Chronic) "Decompression fusion in May 2017 [address] Walker" CAD (coronary artery disease) (Chronic) "s/p CABG" Arthritis (Chronic) Asthma (Chronic) GERD (gastroesophageal reflux disease) (Chronic) Mood disorder (Chronic) HTN (hypertension) (Chronic) Medical History (Updated 11/24/23 @ 10:47 by Moe Walker DO) Hypertension Asthma daily inh Arthritis CAD (coronary artery disease) s/p CABG x 2002 Depression High cholesterol Reflux gastritis Fusion of spine 06/08/17 L3-L5 D/F 01/2018 L5-S1 Decompression,[id number],Hardware Removal L-3-L-5 ~10 days after the 01/2018 sx, another procedure performed "due to intense pain" Surgical History Hx of bilateral cataract extraction Hx of tonsillectomy History of revision of total shoulder arthroplasty 08/2023, right shoulder History of reverse total replacement of right shoulder joint 2019, UOC in [place] Hx of hernia repair History of colonoscopy History of total hysterectomy with bilateral salpingo-oophorectomy (BSO) Hx of CABG ~2002, 2 vessel, [facility]; f/u dr. briceno, [place] Social History Smoking Status: Never smoker Second Hand Exposure: Yes (hx, when - used to smoke); Do You Dip or Chew Tobacco: No; Tobacco Cessation Education Requested by Patient: No Hx Alcohol Use: Yes (none in years) Hx Substance Use: No Preferred Language: Sami Communication Ability: Effective Creative Services Designer Required: No Beliefs That Will Affect Care: None marital status: Unknown Current Living Situation: Alone How many Children do You have: 2 Other Information That Helps Us Care for You: No Feels Safe at Home: Yes Safety Concerns: Feels Safe At This Time Assistive Devices: Cane, Glasses and Hearing Aid - Bilateral Physical Exam Physical Exam: Patient is alert and oriented Heart regular in rhythm Lungs clear Results & Data Results & Data Vital Signs (Past 12 Hours) Vital Signs Temp Pulse Resp BP Pulse Ox O2 Del Method 11/24/23 09:13 36.9 C 78 20 156/73 H 100 Room Air
[2023-11-24] MEDS ORDERED: NALOXONE HCL 0.4 MG/1 ML VIAL/CARP IV PRN ×2 (11:06→13:47)
[2023-11-24] MEDS ORDERED: FLUMAZENIL 0.1 MG/1 ML 10 ML VIAL IV PRN (11:06)
[2023-11-24] MEDS ORDERED: ONDANSETRON INJ 2 MG/ML 2 ML VIAL IV PRN ×2 (11:06→13:47)
[2023-11-24] MEDS ORDERED: PROMETHAZINE HCL 6.25 MG in SODIUM CHLORIDE 0.9% 50 ML IV PRN (11:06)
[2023-11-24] MEDS ORDERED: ATROPINE SULFATE 0.1 MG/ML 10ML SYR IV PRN (11:06)
[2023-11-24] MEDS ORDERED: ePHEDrine sulfate 50 MG/ML AMP IV PRN (11:06)
[2023-11-24] MEDS: ceFAZolin 2000MG 2,000 MG/15 ML SYR IV SCH (11:15)
[2023-11-24] MEDS ORDERED: ONDANSETRON INJ 2 MG/ML 2 ML VIAL ONE (11:37)
[2023-11-24] MEDS ORDERED: ROCURONIUM BROMIDE 10 MG/ML 5 ML VIAL IV ONE (11:37)
[2023-11-24] MEDS ORDERED: LIDOCAINE 2% 2 ML VIAL/AMP(20MG/ML) INFIL ONE (11:37)
[2023-11-24] MEDS ORDERED: DEXAMETHASONE SOD INJ 4 MG/ML VIAL ONE (11:37)
[2023-11-24] MEDS ORDERED: SUGAMMADEX SODIUM 200 MG/2 ML VIAL IV ONE (11:37)
[2023-11-24] MEDS ORDERED: PROPOFOL IV EMULSION 10 MG/ML 20 ML VIAL IV ONE (11:37)
[2023-11-24] MEDS: BUPIVACAINE/EPINEPHRINE 0.25% 1:200,000 30 ML VIAL ONE (12:14)
--- NOTE | 2023-11-24 12:14 | Operative Report ---
Post Operative Report Pre & Post Diagnosis Operation Date: 11/24/23 Pre-Op diagnosis hardware exposure secondary to sacral decubiti on the right. Postop diagnosis Same I identified the patient and participated in the time-out.: Yes Procedure Operation Date: 11/24/23 10:25 Hardware removal lumbar spine L2-S1 with removal of iliac bolts. Surgeon Moe Walker, DO Unloader Operator Lorena Cast Estimated Blood Loss 25 Findings Consistent with Post-Op Diagnosis Specimens Cultures taken of the lumbar spine Indications This is a 78-year-old female the presents with sacral decubiti over the right side of her pelvis. It is eroded to the iliac bolts from her previous lumbar fusion. Simply she is here for removal of hardware. Description of Procedure Patient met with identified informed consent obtained. Patient was then taken to the operative suite underwent patient placed in a prone position on the Jc table on top of the Mika frame. All bony promises well-padded eyes inspected to ensure no external pressure placed upon them. This point the thoracolumbar spine was prepped and draped sterile fashion. Midline incision w as then created over the previous dissection. I then dissected over to the pedicle screws and iliac bolts on the right. They were removed without difficulty. Next fusion mass was explored and noted to be mature and intact. Then debrided any compromised tissue. I then placed approximately 10 cc of Stimulan beads impregnated with vancomycin and gentamicin throughout the pedicle screw hole and iliac bolt holes. The incision was then closed with 1 Vicryl to fascia 2-0 Vicryl subcutaneously and 4 Monocryl for final closure. Steri-Strips sterile dressings placed. Patient waken taken to PACU stable condition. Please note Lorena Cast was present at the entire procedure and all the patient positioning complex portion of the surgery and final skin closure. I attest to the content of the Intraoperative Record and any orders documented therein. Any exceptions are noted below.
[2023-11-24] MEDS: ceFAZolin 330 MG/ML 1 GM VIAL ONE ×2 (12:15→12:17)
[2023-11-24] MEDS: VANCOMYCIN HCL 1000MG/20ML VIAL ONE (12:16)
[2023-11-24] MEDS: GENTAMICIN SULFATE 40 MG/ML 2 ML VIAL ONE (12:16)
[2023-11-24] MEDS: FLOSEAL HEMOSTATIC MATRIX 10ML TOP ONE (12:17)
[2023-11-24] MEDS: fentaNYL citrate PF 100 MCG/2 ML VIAL IV PRN (12:42)
--- NOTE | 2023-11-24 13:26 | Anesthesiology Progress Note ---
Date of Service November 24, 2023 Anesthesia Post Procedure Vital Signs Vital Signs: Temp Pulse Pulse Resp BP Pulse Ox O2 Del Method 11/24/23 13:15 36.6 C 75 18 147/74 H 92 Room Air 11/24/23 13:05 24 157/66 H 93 Room Air 11/24/23 12:55 78 13 168/76 H 95 Room Air 11/24/23 12:45 36.3 C L 75 14 151/63 H 100 Oxymask 11/24/23 12:35 36.3 C L 73 18 148/66 H 100 Oxymask 11/24/23 09:13 36.9 C 78 20 156/73 H 100 Room Air O2 Flow Rate 11/24/23 13:15 11/24/23 13:05 11/24/23 12:55 11/24/23 12:45 3 11/24/23 12:35 5 11/24/23 09:13 Pain Intensity Back: Pain Intensity: 2 Transfer of Care Handoff Completed per policy Notes Mental Status: alert / awake / arousable Patient Amnestic to Procedure: Yes Nausea / Vomiting: adequately controlled Pain: adequately controlled Airway Patency, RR, SpO2: stable & adequate BP & HR: stable & adequate Hydration State: stable & adequate Anesthetic Complications: no major complications apparent
[2023-11-24] MEDS ORDERED: ACETAMINOPHEN 1,000 MG/100 ML VIAL IV PRN (13:47)
[2023-11-24] MEDS ORDERED: hydrOXYzine HCl 25 MG TAB PO PRN (13:47)
[2023-11-24] MEDS ORDERED: DO NOT ADMINISTER PNEUMOCOCCAL VACCINE PRN (13:47)
[2023-11-24] MEDS ORDERED: traMADol HCL 50 MG TABLET PO PRN (13:47)
[2023-11-24] MEDS ORDERED: NITROGLYCERIN SL 0.4 MG/TAB TAB SL PRN (13:47)
[2023-11-24] MEDS ORDERED: MAGNESIUM HYDROXIDE SUSP 30 ML UDC PO PRN (13:47)
[2023-11-24] MEDS ORDERED: bisacodyL 10 MG SUPP PR PRN (13:47)
[2023-11-24] MEDS ORDERED: METOCLOPRAMIDE HCL INJ 5 MG/ML 2 ML VIAL IV PRN (13:47)
[2023-11-24] MEDS ORDERED: PROMETHAZINE HCL 12.5 MG in SODIUM CHLORIDE 0.9% 50 ML IV PRN (13:47)
[2023-11-24] MEDS ORDERED: ONDANSETRON 4 MG OD TAB PO PRN (13:47)
[2023-11-24] MEDS ORDERED: HYDROmorphone INJ 1 MG/ML SYRINGE IV PRN (13:47)
[2023-11-24] MEDS ORDERED: LORazepam 0.5 MG TAB PO PRN (13:47)
[2023-11-24] MEDS ORDERED: HYDROmorphone INJ 0.5 MG/0.5 ML SYR IV PRN (13:47)
[2023-11-24] MEDS ORDERED: SOD PHOSPHATE/SOD BIPHOSPHATE ENEMA 132 ML BTL PR PRN (13:47)
[2023-11-24] MEDS ORDERED: DO NOT ADMINISTER FLU VACCINE PRN (13:47)
[2023-11-24] MEDS ORDERED: FAMOTIDINE 20 MG TAB PO PRN (13:47)
[2023-11-24] MEDS ORDERED: LORazepam 0.5 MG in SYRINGE 0.25 ML IV PRN (13:47)
[2023-11-24] MEDS ORDERED: diphenhydrAMINE Capsule 25 MG CAP PO PRN (13:47)
[2023-11-24] MEDS ORDERED: ALUMINUM/MAGNESIUM SUSP 30 ML UDC PO PRN (13:47)
--- NOTE | 2023-11-24 14:22 | Fluoroscopy Report ---
FL lumbar spine 2-3V CLINICAL HISTORY: HARDWARE REMOVAL TECHNIQUE: 1 views were obtained with the C-arm in the OR with the above procedure. Total fluoroscopy time was 4 seconds. Radiation dose was 1.60 mGy. Comparison: Comparison is made to CT lumbar spine 03/15/2018 FINDINGS/IMPRESSION: Intraoperative images were obtained of hardware removal. Please correlate with intraoperative fluoroscopy and operative report. ACT 112: Negative or not required by law. Electronically signed by: Houston Rogers M.D. 11/24/2023 2:21 PM
[2023-11-24] MEDS: LACTATED RINGER'S 1,000 ML IV SCH (14:58)
[2023-11-24] MEDS: CARBIDOPA/LEVODOPA 25/100MG EXT REL TAB PO SCH (15:02)
[2023-11-24 17:19] LABS: Hemoglobin 9.4 g/dl (12.0-16.0); Mean Corpuscular Hemoglobin 26.5 pg (25.0-34.0); Mean Corpuscular Hgb Conc 30.3 g/dL (32.0-36.0); Mean Corpuscular Volume 87.3 fL (80.0-100.0); Mean Platelet Volume 10.9 fL (9.4-12.4); Platelet Count 355 K/uL (130-400); RDW Coefficient of Variation 13.9 % (11.5-14.5); Red Blood Count 3.55 M/uL (4.20-5.40); White Blood Count 10.02 K/ul (4.8-10.8)
[2023-11-24 17:41] LABS: Basophils # (auto) 0.02 K/uL (0.00-0.20); Basophils % (auto) 0.2 %; Hypochromasia Present; Immature Granulocytes # (auto) 0.05 K/uL (0.01-0.20); Immature Granulocytes % (auto) 0.5 %; Lymphocytes # (auto) 0.69 K/uL (1.20-3.40); Lymphocytes % (auto) 6.9 %; Monocytes # (auto) 0.14 K/uL (0.11-0.59); Monocytes % (auto) 1.4 %; Neutrophils # (auto) 9.12 K/uL (1.40-6.50)
[2023-11-24] MEDS ORDERED: MoRPHine SULFATE 4 MG/ML 1 ML CARP\\VIAL IV PRN (17:50)
--- NOTE | 2023-11-24 18:06 | History & Physical Report ---
Date of Service November 24, 2023 Assessment & Plan (1) S/P hardware removal: Plan: 70-year-old female with history of CAD, CABG, hypertension, GERD, psoriatic arthritis, Parkinson disease, etc. presenting status post lumbar spine hardware removal. Status post lumbar spine hardware removal Sacral decubitus ulcer Doing well postsurgery overall Significant drainage noted on dressing, H&H obtained, hemoglobin 9.4 Repeat in the morning Dr. Walker made aware of drainage by RN History of CAD, CABG Hold aspirin for now in light of significant drainage on the wound site Hold Lasix for now, and gentle IV fluids Reevaluate tomorrow Hypertension Stable overall Continue metoprolol, losartan GERD Continue omeprazole Thank you for this consultation. We will follow the patient with you during their hospital stay. You can reach a [facility] via pager @ [phone]. Admission and Anticipated Discharge Date Admission Date: November 24, 2023 History of Present Illness Primary Care Provider: Bg Flaherty MD 70-year-old female with history of CAD, CABG, hypertension, GERD, psoriatic arthritis, Parkinson disease, etc. presenting status post lumbar spine hardware removal. Patient today underwent lumbar spine hardware removal with application of antibiotic stimulant beads. It was performed as hardware was being exposed due to sacral decubitus ulcer. She was seen resting in bed, sitting up, having dinner. She is awake and alert, oriented x 3, answering all questions appropriately. Patient is comfortable, denies headache, chest pain, shortness of breath, palpitations, dizziness, nausea or vomiting. States pain is well-controlled so far. No other new symptoms Allergies Allergy/AdvReac Type Severity Reaction Status Date / Time hydrocodone Allergy Unknown SEVERE Verified 11/24/23 09:18 NAUSEA VOMITING, Hallucinations oxycodone Allergy Unknown SEVERE Verified 11/24/23 09:18 NAUSEA AND VOMITNG Home Medications Medication Instructions Recorded Confirmed Type acetaminophen 500 mg tablet 1,000 mg PO Q6H PRN Pain 11/17/23 11/24/23 History aspirin 81 mg capsule 81 mg PO QAM 11/17/23 11/24/23 History carbidopa ER 25 mg-levodopa 100 mg 1 tab PO TID 11/17/23 11/24/23 History tablet,extended release duloxetine 30 mg capsule,delayed 30 mg PO HS 11/17/23 11/24/23 History release (Cymbalta) fluticasone 250 mcg-salmeterol 50 1 inh inhalation HS 11/17/23 11/24/23 History mcg/dose blistr powdr for inhalation (Advair Diskus) furosemide 40 mg tablet 40 mg PO QAM 11/17/23 11/24/23 History gabapentin 300 mg capsule 300 mg PO TID 11/17/23 11/24/23 History losartan 50 mg tablet 50 mg PO QAM 11/17/23 11/24/23 History metoprolol tartrate 25 mg tablet 12.5 - 25 mg PO UD 11/17/23 11/24/23 History montelukast 10 mg tablet 10 mg PO HS 11/17/23 11/24/23 History nitroglycerin 0.4 mg sublingual 0.4 mg sublingual UD PRN Chest Pain 11/17/23 11/24/23 History tablet omeprazole 20 mg tablet,delayed 20 mg PO QAM 11/17/23 11/24/23 History release rosuvastatin 5 mg tablet (Crestor) 5 mg PO HS 11/17/23 11/24/23 History Past Med/Surg History Problem List (Updated 11/24/23 @ 10:47 by Moe Walker DO) S/P hardware removal Sacral decubitus ulcer Encounter for pre-operative examination Lumbar stenosis with neurogenic claudication (Chronic) H/O hernia repair (Chronic) H/O: hysterectomy (Chronic) S/P spinal surgery (Chronic) "Decompression fusion in May 2017 [address] Walker" CAD (coronary artery disease) (Chronic) "s/p CABG" Arthritis (Chronic) Asthma (Chronic) GERD (gastroesophageal reflux disease) (Chronic) Mood disorder (Chronic) HTN (hypertension) (Chronic) Medical History (Updated 11/24/23 @ 10:47 by Moe Walker DO) Hypertension Asthma daily inh Arthritis CAD (coronary artery disease) s/p CABG x 2 2002 Depression High cholesterol Reflux gastritis Fusion of spine 06/08/17 L3-L5 D/F 01/2018 L5-S1 Decompression,[id number],Hardware Removal L-3-L-5 ~10 days after the 01/2018 sx, another procedure performed "due to intense pain" Surgical History (Updated 11/24/23 @ 20:00 by José Miguel Ashraf MD) Hx of bilateral cataract extraction Hx of tonsillectomy History of revision of total shoulder arthroplasty 08/2023, right shoulder History of reverse total replacement of right shoulder joint 2019, [facility] in [place] Hx of hernia repair History of colonoscopy History of total hysterectomy with bilateral salpingo-oophorectomy (BSO) Hx of CABG ~2002, 2 vessel, [facility]; f/u dr. briceno [place] Social History Smoking Status: Never smoker Second Hand Exposure: Yes (hx, when - used to smoke); Do You Dip or Chew Tobacco: No; Tobacco Cessation Education Requested by Patient: No Hx Alcohol Use: Yes (none in years) Hx Substance Use: No Preferred Language: Dutch Communication Ability: Effective Stove Refinisher Required: No Beliefs That Will Affect Care: None marital status: Unknown Current Living Situation: Alone How many Children do You have: 2 Other Information That Helps Us Care for You: No Feels Safe at Home: Yes Safety Concerns: Feels Safe At This Time Assistive Devices: Cane, Glasses and Hearing Aid - Bilateral Review of Systems Review of Systems: all noted and negative except for above Physical Exam Physical Exam: General- oriented x 3, not in distress, speaks in sentences with no effort or accessory muscle use Eyes- anicteric Neck- no JVD Lungs- clear breath sounds bilaterally, no rales/wheezes Heart- normal rate, regular rhythm; no murmurs Abdomen- normal bowel sounds, nondistended, soft, nontender Extremities- no pretibial edema, no calf tenderness Neuro- alert, oriented x 3; no gross focal neurologic deficits Skin- warm & dry Results & Data Results & Data Vital Signs (Past 12 Hours) Vital Signs Temp Pulse Pulse Resp BP Pulse Ox O2 Del Method 11/24/23 15:26 36.7 C 69 16 155/75 H 99 Room Air 11/24/23 14:30 36.6 C 66 16 122/67 96 Room Air 11/24/23 14:15 36.7 C 76 16 173/73 H 96 Room Air 11/24/23 13:47 36.8 C 77 16 159/67 H 98 Room Air 11/24/23 13:15 36.6 C 75 18 147/74 H 92 Room Air 11/24/23 13:05 75 24 157/66 H 93 Room Air 11/24/23 12:55 78 13 168/76 H 95 Room Air 11/24/23 12:45 36.3 C L 75 14 151/63 H 100 Oxymask 11/24/23 12:35 36.3 C L 73 18 148/66 H 100 Oxymask 11/24/23 09:13 36.9 C 78 20 156/73 H 100 Room Air O2 Flow Rate 11/24/23 15:26 11/24/23 14:30 11/24/23 14:15 11/24/23 13:47 11/24/23 13:15 11/24/23 13:05 11/24/23 12:55 11/24/23 12:45 3 11/24/23 12:35 5 11/24/23 09:13 all noted and reviewed including below Code Status & VTE Plan VTE Prophylaxis Plan VTE Prophylaxis will be ordered: Yes
[2023-11-24] MEDS: FLUTICASONE/VILANTEROL 200/25MCG 14 PUFFS/INHALER INH SCH (20:18)
[2023-11-24] MEDS: ceFAZolin 1000MG 1,000 MG/7.5 ML SYR IV SCH (20:18)
[2023-11-24] MEDS: MONTELUKAST SODIUM 10 MG TABLET PO SCH (20:19)
[2023-11-24] MEDS: DULoxetine HCL 30 MG CAP PO SCH (20:19)
[2023-11-24] MEDS: ROSUVASTATIN CALCIUM 5 MG TAB PO SCH (20:19)
[2023-11-24] MEDS: DOCUSATE SODIUM/SENNA 50/8.6MG TAB PO SCH (20:20)
[2023-11-24] MEDS: METOPROLOL TARTRATE 25 MG TAB PO SCH (20:20)
[2023-11-25] MEDS: POLYETHYLENE (MIRALAX) 17 GM PACK PO SCH (06:00)
[2023-11-25] MEDS: ACETAMINOPHEN 500 MG TAB PO PRN (06:30)
[2023-11-25 06:58] LABS: Basophils # (auto) 0.03 K/uL (0.00-0.20); Basophils % (auto) 0.3 %; Eosinophils # (auto) 0.01 K/uL (0.00-0.50); Eosinophils % (auto) 0.1 %; Hematocrit (blood only) 29.7 % (37.0-47.0); Hemoglobin 9.2 g/dl (12.0-16.0); Immature Granulocytes # (auto) 0.07 K/uL (0.01-0.20); Immature Granulocytes % (auto) 0.6 %; Lymphocytes # (auto) 1.97 K/uL (1.20-3.40); Lymphocytes % (auto) 16.4 %; Mean Corpuscular Hemoglobin 27.2 pg (25.0-34.0); Mean Corpuscular Volume 87.9 fL (80.0-100.0); Mean Platelet Volume 10.9 fL (9.4-12.4); Monocytes # (auto) 0.81 K/uL (0.11-0.59); Monocytes % (auto) 6.8 %; Neutrophils # (auto) 9.09 K/uL (1.40-6.50); Neutrophils % (auto) 75.8 %; Platelet Count 374 K/uL (130-400); RDW Coefficient of Variation 13.9 % (11.5-14.5); RDW Standard Deviation 44.7 fL (36.4-46.3); Red Blood Count 3.38 M/uL (4.20-5.40); White Blood Count 11.98 K/ul (4.8-10.8)
[2023-11-25 07:10] LABS: BUN Creatinine Ratio 33.3 (10-20); Calcium 9.2 mg/dl (8.6-10.3); Creatinine Clr Calc Pharmacy 48.3 ml/min; Est GFR (African American) 96.6 ml/min; Est GFR (Non-African American) 83.4 ml/min; Potassium 4.6 mmol/L (3.5-5.1)
[2023-11-25 07:19] VITALS: TEMP 97.9
[2023-11-25] MEDS: METOPROLOL TARTRATE 25 MG TAB PO SCH (08:11)
[2023-11-25] MEDS: PANTOprazole 40 MG TAB PO SCH (08:12)
[2023-11-25] MEDS: LOSARTAN POTASSIUM 50 MG TAB PO SCH (08:12)
[2023-11-25] MEDS ORDERED: ASPIRIN 81 MG ECTAB PO SCH (09:00)
[2023-11-25] MEDS ORDERED: FUROSEMIDE 40 MG TAB PO SCH (09:00)
--- NOTE | 2023-11-25 10:06 | Orthopedic Progress Note ---
Date of Service November 25, 2023 Assessment & Plan (1) Sacral decubitus ulcer: Plan: At this time we will monitor her today and plan for discharge home tomorrow. She does have a wound care physician already arranged. Will hope to have home nursing and PT available to her. Admission and Anticipated Discharge Date Admission Date: November 24, 2023 Subjective Back pain well-controlled. Denies any leg pain. Tolerating physical therapy. Physical Exam Physical Exam: Patient is in the chair at the bedside. She has good strength testing. Tolerating physical therapy. Results & Data Vital Signs (Past 12 Hours) Vital Signs Temp Pulse Resp BP Pulse Ox O2 Del Method 11/25/23 07:18 36.6 C 68 16 130/68 97 Room Air 11/25/23 03:31 36.5 C 64 16 138/65 99 Room Air 11/24/23 23:30 36.5 C 92 H 17 115/69 95 Room Air
--- NOTE | 2023-11-25 16:40 | Hospitalist Progress Note ---
Date of Service November 25, 2023 Assessment & Plan (1) S/P hardware removal: Plan: 70-year-old female with history of CAD, CABG, hypertension, GERD, psoriatic arthritis, Parkinson disease, etc. presenting status post lumbar spine hardware removal. Status post lumbar spine hardware removal Sacral decubitus ulcer Doing well postsurgery overall Significant drainage noted on dressing, H&H obtained, hemoglobin 9.4 Repeat in the morning Dr. Walker made aware of drainage by RN 11/24 Stable overall Hemoglobin remained stable at 9.2 Hold aspirin for now History of CAD, CABG Hold aspirin for now in light of significant drainage on the wound site Hold Lasix for now, and gentle IV fluids Reevaluate tomorrow 11/24 No cardiac symptoms Hold aspirin for now, hopefully can resume tomorrow Hold Lasix for now as well Hypertension Stable overall Continue metoprolol, losartan GERD Continue omeprazole Thank you for this consultation. We will follow the patient with you during their hospital stay. You can reach a member of the [facility]ist Team 18/01 via pager @ [phone]. Admission and Anticipated Discharge Date Admission Date: November 24, 2023 Subjective Follow-up for status post lumbar spine hardware removal, etc. Seen resting in bed, sitting up, awake and alert, oriented x 3 Good spirits, comfortable States she feels fine overall No chest pain, shortness of breath, dizziness, nausea vomiting Pain adequately controlled Drainage on dressing getting less as per RN No other new symptoms Review of Systems Review of Systems: all noted and negative except for above Physical Exam Physical Exam: General- oriented x 3, not in distress, speaks in sentences with no effort or accessory muscle use Eyes- anicteric Neck- no JVD Lungs- clear breath sounds bilaterally, no rales/wheezes Heart- normal rate, regular rhythm; no murmurs Abdomen- normal bowel sounds, nondistended, soft, nontender Extremities- no pretibial edema, no calf tenderness Neuro- alert, oriented x 3; no gross focal neurologic deficits Skin- warm & dry Results & Data Results & Data Vital Signs (Past 12 Hours) Vital Signs Temp Pulse Resp BP Pulse Ox O2 Del Method 11/25/23 14:58 36.6 C 70 16 137/72 97 Room Air 11/25/23 07:18 36.6 C 68 16 130/68 97 Room Air all noted and reviewed including below
[2023-11-26 07:12] VITALS: BP 163/62; PULSE 65; RESP 16; O2SAT 100
--- NOTE | 2023-11-26 09:29 | Hospitalist Progress Note ---
Date of Service November 26, 2023 Assessment & Plan (1) S/P hardware removal: Plan: 70-year-old female with history significant for CAD, CABG, hypertension, GERD, psoriatic arthritis, Parkinson disease presenting status post lumbar spine hardware removal. Status post lumbar spine hardware removal Sacral decubitus ulcer Doing well postsurgery overall Significant drainage noted on dressing, H&H obtained, hemoglobin 9.2 Dr. Walker made aware of drainage by RN The patient's condition requires positioning of the body due to sacral decubitus ulcer. Stable overall Hemoglobin remained stable at 9.2 Held aspirin, resume on discharge History of CAD, CABG Held aspirin for now in light of significant drainage on the wound site Held Lasix and gentle IV fluids Resume on discharge Hypertension Stable overall Continue metoprolol, losartan GERD Continue omeprazole Admission and Anticipated Discharge Date Admission Date: November 24, 2023 Subjective Pt was seen while sitting in bed. Was previously working with OT. Denied acute concerns, stated that she wanted to go home. Review of Systems Review of Systems: All systems reviewed & are unremarkable except as noted in Subjective Physical Exam Physical Exam: General: Alert No acute distress Psych: Appropriate mood and affect Neuro: difficulty with movements in the bed HEENT: NC/AT CV: RRR Resp: Breath sounds clear bilaterally, no increased effort of breathing. Abdomen:Soft, nontender, nondistended. Extremities: No edema in lower extremities bilaterally. Results & Data Results & Data Vital Signs (Past 12 Hours) Vital Signs Temp Pulse Resp BP Pulse Ox O2 Del Method 11/26/23 07:47 Room Air 11/26/23 07:08 36.6 C 65 16 163/62 H 100 Room Air
--- NOTE | 2023-11-26 10:25 | Discharge Summary ---
Date of Service November 26, 2023 Admission HPI Per Admitting Provider 70-year-old female with history of CAD, CABG, hypertension, GERD, psoriatic arthritis, Parkinson disease, etc. presenting status post lumbar spine hardware removal. Patient today underwent lumbar spine hardware removal with application of antibiotic stimulant beads. It was performed as hardware was being exposed due to sacral decubitus ulcer. She was seen resting in bed, sitting up, having dinner. She is awake and alert, oriented x 3, answering all questions appropriately. Patient is comfortable, denies headache, chest pain, shortness of breath, palpitations, dizziness, nausea or vomiting. States pain is well-controlled so far. No other new symptoms Principal Diagnosis Sacral decubiti with hardware removal Discharge Data Allergies Allergy/AdvReac Type Severity Reaction Status Date / Time hydrocodone Allergy Unknown SEVERE Verified 11/24/23 09:18 NAUSEA VOMITING, Hallucinations oxycodone Allergy Unknown SEVERE Verified 11/24/23 09:18 NAUSEA AND VOMITNG Consultations 11/24/23 13:47 Consult Hospitalist Routine Procedures Performed Operation Date: 11/24/23 10:25 Actual Procedures p Medicrea Hardware Removal Lumbar Spine with application of antibiotic stimulan beads(Not Applicable) - Moe Walker DO Ordered Studies 11/24/23 07:00 FL spine 1V any level Routine Hospital Course (1) S/P hardware removal: Patient 1 hardware removal tolerates well was taken to orthopedic for postoperative postop patient progressed appropriately with therapy. Pain is well-controlled. Excellent strength testing. Subsequently discharged home. Discharge orders instructions found in chart for further review. Total Time Total Time Spent Total Time Spent (In Minutes): 20 minutes Discharge Plan Discharge Items Patient Disposition: Home - Home Health Services Reason For Visit: Exposed Orthopedic Hardware Discharge Diagnosis: Sacral decubiti Activity: Per Instructions section Lifting: No more than 5 pounds Bathing: May shower/bathe in 3 days Non-emergency contact: Primary Care Provider Call non-emergency contact if: you have any medication questions Follow-up/Referrals: Bg Flaherty MD [Primary Care Provider] - Diet: Regular Addtl Attending Provider Instructions: Follow-up with her wound doctor. Maintain dressing until follow-up. May change as needed. Pending Studies at Discharge: No Stand-Alone Forms: [email or web address], Smoking Cessation Medications and DC Order Prescriptions: New tramadol 50 mg tablet 50 mg PO Q6H PRN (Reason: pain, moderate) Qty: 30 0RF Continued losartan 50 mg Tablet 50 mg PO QAM furosemide 40 mg Tablet 40 mg PO QAM fluticasone propion-salmeterol [Advair Diskus] 250-50 mcg/dose Blister With Device 1 inh INHALATION HS carbidopa-levodopa 25-100 mg Tablet Extended Release 1 tab PO TID acetaminophen 500 mg Tablet 1,000 mg PO Q6H PRN (Reason: Pain) nitroglycerin 0.4 mg Tablet, Sublingual 0.4 mg sublingual UD PRN (Reason: Chest Pain) gabapentin 300 mg Capsule 300 mg PO TID montelukast 10 mg Tablet 10 mg PO HS rosuvastatin [Crestor] 5 mg Tablet 5 mg PO HS metoprolol tartrate 25 mg Tablet 12.5 - 25 mg PO UD Rx Instructions: 12.5mg QAM and 25mg QPM duloxetine [Cymbalta] 30 mg Capsule,Delayed Release(Dr/Ec) 30 mg PO HS omeprazole 20 mg Tablet,Delayed Release (Dr/Ec) 20 mg PO QAM aspirin 81 mg Capsule 81 mg PO QAM Discharge Orders: Discharge Order (Routine); Ordered 11/26/23 Ordered By: Moe Walker Admission Data Admit Date/Time: 11/24/23 12:24 Attending Provider: Moe Walker Admit Provider: Moe Walker Primary Care Provider: Bg Flaherty Other Providers: Marianne Rowan
--- NOTE | 2023-11-27 08:54 | Coding Query ---
CODING QUERY To promote full compliance with coding requirements relating to patient care, provider participation is requested in all cases of triage technician uncertainty. Please assist us with the question(s) below: Coding Question(s): Documentation in the medical record indicates the following: HP presents with sacral ulcer on the left SI joint region. Hardware is exposed. Subsequently she is here for hardware removal so she can continue appropriate care of her decubiti.. OP presents with sacral decubiti over the right side of her pelvis. It is eroded to the iliac bolts from her previous lumbar fusion. . Based on your medical judgment, can you further clarify in the progress notes the stage of the sacral decubitus ulcer? [ ] Stage 1 [ ] Stage 2 [ ] Stage 3 [x ] Stage 4 [ ] Unstageable [ ] Unable to determine Physician's Response(s): Thank you Yarely Bernal Principal Diagnosis: "that condition established after study, to be chiefly responsible for occasioning the admission of the patient to the hospital for care." Co-Existing Principal Diagnosis: "when two or more diagnoses equally meet the criteria for principal diagnosis as determined by the circumstances of admission, diagnostic work up, and/or therapy provided, and the Alphabetic Index, Tabular List, or another coding guideline does not provide sequencing direction, any one of the diagnoses may be sequenced first." "When the physician has documented what appears to be a current diagnosis in the body of the record, but has not included the diagnosis in the final diagnostic statement, the physician should be asked whether the diagnosis should be added." (Source Coding [facility] 2 QTR90. p3-4) CATERINA
== END 2023-11-26 12:00 | disposition home health service (06) | DRG 495 ==
LOC: ASU 08:36 → 3E 12:24